=== PATIENT | male | born 1945 | race Two or more races ===

== ENCOUNTER 2024-07-22 12:38 | Inpatient (IN) | payer OTHER, MEDICAID ==
[2024-07-22] VITALS (25 sets, daily range): BP systolic 74–111; BP diastolic 48–76; TEMP 99.8–100.1; O2SAT 98–100
[~2024-07-22] VITALS: Ht 165.1 cm; Wt 124.1 kg
[2024-07-22] MEDS ORDERED: DICY10CA13 PO (13:07)
[2024-07-22] MEDS ORDERED: LOSA25TA27 PO (13:07)
[2024-07-22] MEDS ORDERED: TEMA15CA PO (13:07)
[2024-07-22] MEDS ORDERED: TAMS-3 PO (13:07)
[2024-07-22] MEDS ORDERED: VERA240C2 PO (13:07)
[2024-07-22] MEDS ORDERED: METF500S7 PO (13:07)
[2024-07-22] MEDS ORDERED: FINA1TAB11 PO (13:07)
[2024-07-22] MEDS ORDERED: CEFEPIME HCL 1 G VIAL ONE ×2 (13:11→21:57)
[2024-07-22] MEDS: IV LACTATED RINGERS SOLUTION 1,000 ML BAG IV ONE (13:12)
[2024-07-22] MEDS: CEFEPIME HCL 1 G in IV DEXTROSE 5% 50 ML IV ONE (13:15)
[2024-07-22 13:20] LABS: BASOPHILS % (AUTO) 0.1 % (0.0-2.0); HEMATOCRIT 47.8 % (36.7-47.1); HEMOGLOBIN 15.9 g/dL (12.5-16.3); LYMPHOCYTES # (AUTO) 0.3 K/uL (0.8-4.8); LYMPHOCYTES % (AUTO) 3.4 % (20.5-51.5); MEAN CORPUSCULAR HEMOGLOBIN 31.7 uug (23.8-33.4); MEAN CORPUSCULAR HGB CONC 33 g/dL (32.5-36.3); MEAN CORPUSCULAR VOLUME 95.3 fL (73.0-96.2); MONOCYTES # (AUTO) 0.1 K/uL (0.1-1.30); MONOCYTES % (AUTO) 1.4 % (0.0-11.0); NEUTROPHILS # (AUTO) 8.6 K/uL (1.8-8.9); NEUTROPHILS % (AUTO) 95.1 % (38.5-71.5); PLATELET COUNT (AUTO) 87 K/uL (152-348); RED BLOOD CELL COUNT(AUTO) 5.01 MIL/uL (4.06-5.63); RED CELL DISTRIBUTION WIDTH 14.9 % (12.1-16.2); WHITE BLOOD COUNT (AUTO) 9.1 K/uL (3.6-10.2)
[2024-07-22] MEDS ORDERED: VANCOMYCIN IV 200 ML ONE (13:21)
[2024-07-22 13:25] LABS: ABG BASE EXCESS -12.4 mmol/L (-2.0-3.0); ABG HCO3 11.5 mmol/L (21.0-28.0); ABG PCO2 23.6 mmHg (35.0-48.0); ABG PH 7.307 (7.350-7.450); ABG PO2 95.1 mmHg (83.0-108.0); ABG SITE RIGHT RADIAL; ABG TOTAL HEMOGLOBIN 16.6 G/dL (13.5-17.5); AaDO2 96.8 mmHg; MetHb 0.4 % (0.0-1.5); O2Hb 96.2 % (94.0-98.0)
[2024-07-22] MEDS: VANCOMYCIN IV 1,000 MG in IV DEXTROSE 5% 250 ML IV ONE (13:25)
[2024-07-22 13:31] LABS: DIFFERENTIAL COMMENT 1
[2024-07-22 13:44] LABS: ETHANOL < 3 MG/DL (0-10)
[2024-07-22 13:45] LABS: AMMONIA < 10 umol/L (11-32)
[2024-07-22 13:50] LABS: ACETAMINOPHEN < 10.0 ug/mL (10-30)
[2024-07-22 13:56] LABS: LACTIC ACID 13.2 mmol/L (0.4-2.0)
[2024-07-22 13:59] LABS: CALCIUM 8.9 mg/dL (8.5-10.1); CARBON DIOXIDE 15 mmol/L (21-32); CHLORIDE 103 mmol/L (98-107); GLUCOSE 76 mg/dL (74-106); POTASSIUM 3.1 mmol/L (3.5-5.1); SODIUM SERUM 145 mmol/L (136-145); UREA NITROGEN, BLOOD 48 mg/dL (7-18)
[2024-07-22 14:08] LABS: BAND % (MANUAL) 13 % (0-10); LYMPHOCYTES % (MANUAL) 5 % (20-40); METAMYELOCYTES % 4 % (0-1); MONOCYTES % (MANUAL) 2 % (2-10); MYELOCYTES % 6 % (0-0); NEUTROPHILS % (MANUAL) 70 % (42-75); PLATELET ESTIMATE DECREASED
[2024-07-22 14:12] LABS: ALANINE AMINOTRANSFERASE 29 U/L (16-63); ALBUMIN 3.3 g/dL (3.4-5.0); ALKALINE PHOSPHATASE 221 U/L (50-136); ASPARTATE AMINOTRANSFERASE 60 U/L (15-37); BILIRUBIN,DIRECT 0.6 mg/dL (0.0-0.2); BILIRUBIN,TOTAL 2.1 mg/dL (0.2-1.0); NT-PRO BNP 11380 pg/mL (0-125); TOTAL PROTEIN, SERUM 7.6 g/dL (6.4-8.2)
[2024-07-22 15:52] LABS: *BILIRUBIN,URIN NEGATIVE (NEGATIVE); *BLOOD, URINE 3+ (NEGATIVE); *CLARITY,URINE SLIGHTLY CLOUDY (CLEAR); *COLOR,URINE DARK YELLOW (YELLOW); *KETONES,URINE TRACE (NEGATIVE); *PROTEIN,URINE 2+ (NEGATIVE); *UROBILINOGEN,URINE 0.2 E.U./dl (NORMAL); LEUKOCYTE ESTERASE ,URINE NEGATIVE (NEGATIVE); NITRITE, URINE POSITIVE (NEGATIVE); PH,URINE 5.5 (5.0-8.0); UGLUCOSE NEGATIVE (NEGATIVE)
[2024-07-22 16:09] LABS: BACTERIA,URINE MODERATE /HPF (NONE SEEN); RBC,URINE 20-50 /HPF (0-3)
[2024-07-22 16:10] LABS: SQUAMOUS EPITHELIAL CELL,UR FEW /HPF (NONE SEEN)
[2024-07-22 16:11] LABS: URINE AMORPHOUS URATE MODERATE /HPF
[2024-07-22 16:23] LABS: ABG BASE EXCESS -10.6 mmol/L (-2.0-3.0); ABG HCO3 18.2 mmol/L (21.0-28.0); ABG PCO2 51.4 mmHg (35.0-48.0); ABG PH 7.168 (7.350-7.450); ABG PO2 88.4 mmHg (83.0-108.0); AaDO2 94.2 mmHg; COHb 0.6 % (0.5-1.5); MetHb 0.4 % (0.0-1.5); O2Hb 95.3 % (94.0-98.0)
[2024-07-22] MEDS ORDERED: ETOMIDATE 20 MG/10 ML VIAL ONE (16:34)
[2024-07-22] MEDS: ETOMIDATE 20 MG/10 ML VIAL IV ONE (16:35)
[2024-07-22] MEDS: ROCURONIUM BROMIDE 50 MG/5 ML VIAL IV ONE (16:36)
[2024-07-22] MEDS: NOREPINEPHRINE BITARTRATE 8 MG in IV NORMAL SALINE 250 ML IV ONE (16:40)
[2024-07-22] MEDS ORDERED: NOREPINEPHRINE 8MG/NS 250ML 250 ML IV ONE ×2 (16:41→20:44)
[2024-07-22] MEDS ORDERED: PROPOFOL 100 ML ONE (16:41)
[2024-07-22] MEDS: PROPOFOL 100 ML IV ONE (16:45)
[2024-07-22] MEDS: IV NORMAL SALINE 1000 ML BAG IV ONE (17:08)
[2024-07-22] MEDS ORDERED: ACETAMINOPHEN 650 MG SUPP.RECT RC ONE ×2 (17:15)
[2024-07-22 17:48] LABS: ABG BASE EXCESS -9.3 mmol/L (-2.0-3.0); ABG HCO3 16.4 mmol/L (21.0-28.0); ABG PCO2 35.4 mmHg (35.0-48.0); ABG PH 7.284 (7.350-7.450); ABG PO2 164.2 mmHg (83.0-108.0); ABG SITE RIGHT RADIAL; ABG TOTAL HEMOGLOBIN 15.2 G/dL (13.5-17.5); AaDO2 98.9 mmHg; COHb 0.3 % (0.5-1.5); MetHb 0.5 % (0.0-1.5); O2Hb 98.4 % (94.0-98.0); VT, ABG 577 mL
[2024-07-22] MEDS ORDERED: CEFEPIME HCL 1 G in IV DEXTROSE 5% 50 ML IV SCH (18:15)
[2024-07-22] MEDS ORDERED: ONDANSETRON 4 MG/2 ML VIAL IV PRN (18:15)
[2024-07-22] MEDS ORDERED: MAGNESIUM HYDROXIDE 30 ML LIQUID UDC PO PRN (18:15)
[2024-07-22] MEDS ORDERED: DEXTROSE 50% 50 ML DISP.SYRIN IV PRN (18:15)
[2024-07-22] MEDS ORDERED: NOREPINEPHRINE 8MG/NS 250ML 250 ML IV PRN (21:00)
[2024-07-22] MEDS: IV D5 1/2 NS 1000 ML 1,000 ML IV SCH (21:06)
[2024-07-22] MEDS: BLOOD SUGAR DIAGNOSTIC 1 EACH STRIP VI SCH (21:19)
[2024-07-22] MEDS: NOREPINEPHRINE 8MG/NS 250ML 250 ML IV PRN (21:42)
[2024-07-22] MEDS ORDERED: PROPOFOL 100 ML IV PRN (21:45)
[2024-07-22] MEDS ORDERED: INSULIN REGULAR, HUMAN 1000 UNIT/10 ML VIAL ONE (21:56)
[2024-07-22] MEDS: PROPOFOL 100 ML IV PRN (21:59)
[2024-07-23] VITALS (64 sets, daily range): BP systolic 68–123; BP diastolic 36–83; TEMP 99.8–103.1; O2SAT 92–100
[2024-07-23] MEDS ORDERED: NOREPINEPHRINE 8MG/NS 250ML 250 ML IV ONE (02:20)
[2024-07-23] MEDS: NOREPINEPHRINE BITARTRATE 4 MG/4 ML VIAL IV ONE (03:25)
[2024-07-23] MEDS: INSULIN REGULAR, HUMAN 1000 UNIT/10 ML VIAL SQ PRN (05:48)
[2024-07-23 07:50] LABS: BASOPHILS # (AUTO) 0.1 K/UL (0.0-0.2); BASOPHILS % (AUTO) 0.2 % (0.0-2.0); DIFFERENTIAL COMMENT 0; EOSINOPHILS # (AUTO) 3.3 K/uL (0.0-0.7); EOSINOPHILS % (AUTO) 14.5 % (0.0-7.0); HEMATOCRIT 43.2 % (36.7-47.1); LYMPHOCYTES # (AUTO) 0.8 K/uL (0.8-4.8); LYMPHOCYTES % (AUTO) 3.5 % (20.5-51.5); MEAN CORPUSCULAR HEMOGLOBIN 32.8 uug (23.8-33.4); MEAN CORPUSCULAR HGB CONC 35 g/dL (32.5-36.3); MEAN CORPUSCULAR VOLUME 94.8 fL (73.0-96.2); MONOCYTES # (AUTO) 0.4 K/uL (0.1-1.30); MONOCYTES % (AUTO) 1.6 % (0.0-11.0); NEUTROPHILS # (AUTO) 18.3 K/uL (1.8-8.9); NEUTROPHILS % (AUTO) 80.2 % (38.5-71.5); RED BLOOD CELL COUNT(AUTO) 4.56 MIL/uL (4.06-5.63); RED CELL DISTRIBUTION WIDTH 15.3 % (12.1-16.2); WHITE BLOOD COUNT (AUTO) 22.9 K/uL (3.6-10.2)
[2024-07-23 07:53] LABS: PLATELET COUNT (AUTO) 48 K/uL (152-348)
[2024-07-23] MEDS ORDERED: NOREPINEPHRINE BITARTRATE 32 MG in IV NORMAL SALINE 218 ML IV PRN (08:00)
[2024-07-23 08:10] LABS: ALANINE AMINOTRANSFERASE 45 U/L (16-63); ALBUMIN 2.6 g/dL (3.4-5.0); ALKALINE PHOSPHATASE 98 U/L (50-136); ASPARTATE AMINOTRANSFERASE 95 U/L (15-37); BILIRUBIN,TOTAL 2.6 mg/dL (0.2-1.0); CALCIUM 7.7 mg/dL (8.5-10.1); CARBON DIOXIDE 16 mmol/L (21-32); CHLORIDE 104 mmol/L (98-107); CREATINE KINASE, TOTAL 3765 U/L (39-308); CREATININE 4.6 mg/dL (0.6-1.3); GLUCOSE 174 mg/dL (74-106); MAGNESIUM 1.9 mg/dL (1.8-2.4); PHOSPHOROUS 6.7 mg/dL (2.5-4.9); POTASSIUM 3.8 mmol/L (3.5-5.1); SODIUM SERUM 142 mmol/L (136-145); TOTAL PROTEIN, SERUM 6.6 g/dL (6.4-8.2); UREA NITROGEN, BLOOD 66 mg/dL (7-18)
[2024-07-23] MEDS: ACETAMINOPHEN 650 MG SUPP.RECT RC PRN (08:27)
[2024-07-23 08:32] LABS: ABG BASE EXCESS -13.3 mmol/L (-2.0-3.0); ABG HCO3 11.9 mmol/L (21.0-28.0); ABG PCO2 27.2 mmHg (35.0-48.0); ABG PO2 64.6 mmHg (83.0-108.0); ABG SITE RIGHT RADIAL; ABG TOTAL HEMOGLOBIN 15.5 G/dL (13.5-17.5); COHb 0.6 % (0.5-1.5); MetHb 0.5 % (0.0-1.5); O2Hb 91.6 % (94.0-98.0); VT, ABG 550 mL
[2024-07-23] MEDS: PANTOPRAZOLE SODIUM 40 MG VIAL IV SCH (09:30)
[2024-07-23] MEDS: VANCOMYCIN HCL 750 MG in IV DEXTROSE 5% 250 ML IV ONE (09:30)
[2024-07-23] MEDS: NOREPINEPHRINE BITARTRATE 32 MG in IV NORMAL SALINE 218 ML IV PRN (09:56)
[2024-07-23] MEDS ORDERED: METF-442 PO (10:47)
[2024-07-23] MEDS ORDERED: FINA5TAB11 PO (10:47)
[2024-07-23] MEDS ORDERED: VERA240T32 PO (10:47)
[2024-07-23] MEDS: AMIODARONE HCL IV 150 MG in IV DEXTROSE 5% 100 ML IV ONE (10:48)
[2024-07-23 11:05] LABS: ANISOCYTOSIS 1+; BAND % (MANUAL) 12 % (0-10); LYMPHOCYTES % (MANUAL) 2 % (20-40); METAMYELOCYTES % 12 % (0-1); MONOCYTES % (MANUAL) 4 % (2-10); MYELOCYTES % 6 % (0-0); NEUTROPHILS % (MANUAL) 64 % (42-75); PLATELET ESTIMATE DECREASED
[2024-07-23] MEDS: AMIODARONE HCL IV 450 MG in IV DEXTROSE 5% 250 ML IV PRN (11:16)
[2024-07-23] MEDS ORDERED: PHENYLEPHRINE IV 100 MG in IV NORMAL SALINE 240 ML IV PRN (11:30)
[2024-07-23] MEDS ORDERED: FENTANYL CITRATE/PF 1,000 MCG in IV NORMAL SALINE 80 ML IV PRN (11:30)
[2024-07-23] MEDS ORDERED: MIDAZOLAM HCL 50 MG in IV NORMAL SALINE 40 ML IV PRN (11:30)
[2024-07-23] MEDS: PHENYLEPHRINE IV 100 MG in IV NORMAL SALINE 240 ML IV PRN (12:26)
[2024-07-23] MEDS: SODIUM BICARBONATE 8.4% 50 MEQ/50 ML DISP.SYRIN IV ONE (12:48)
[2024-07-23] MEDS: SODIUM BICARBONATE 8.4% 150 MEQ in IV D5W 1000ML 1,000 ML IV SCH (12:54)
[2024-07-23] MEDS ORDERED: CEFEPIME HCL 2 GM in IV DEXTROSE 5% 100 ML IV ONE (13:00)
[2024-07-23] MEDS: FENTANYL CITRATE/PF 1,000 MCG in IV NORMAL SALINE 80 ML IV PRN (13:14)
[2024-07-23 13:57] LABS: ABG BASE EXCESS -13.3 mmol/L (-2.0-3.0); ABG HCO3 11.6 mmol/L (21.0-28.0); ABG PCO2 25.7 mmHg (35.0-48.0); ABG PH 7.272 (7.350-7.450); ABG PO2 75.8 mmHg (83.0-108.0); ABG SITE RIGHT RADIAL; ABG TOTAL HEMOGLOBIN 15.5 G/dL (13.5-17.5); AaDO2 93.7 mmHg; COHb 0.3 % (0.5-1.5); MetHb 0.4 % (0.0-1.5); O2Hb 95.2 % (94.0-98.0); VT, ABG 500 mL
[2024-07-23] MEDS: CEFEPIME HCL 2 GM in IV DEXTROSE 5% 100 ML IV SCH (14:08)
[2024-07-23] MEDS: MIDAZOLAM HCL 50 MG in IV NORMAL SALINE 40 ML IV PRN (17:42)
[2024-07-23 17:44] LABS: DIFFERENTIAL COMMENT 0; EOSINOPHILS # (AUTO) 1.6 K/uL (0.0-0.7); EOSINOPHILS % (AUTO) 5.6 % (0.0-7.0); HEMATOCRIT 42.2 % (36.7-47.1); HEMOGLOBIN 14.7 g/dL (12.5-16.3); LYMPHOCYTES # (AUTO) 0.4 K/uL (0.8-4.8); LYMPHOCYTES % (AUTO) 1.5 % (20.5-51.5); MEAN CORPUSCULAR HEMOGLOBIN 32.2 uug (23.8-33.4); MEAN CORPUSCULAR HGB CONC 35 g/dL (32.5-36.3); MEAN CORPUSCULAR VOLUME 92.4 fL (73.0-96.2); MONOCYTES # (AUTO) 0.9 K/uL (0.1-1.30); MONOCYTES % (AUTO) 3.1 % (0.0-11.0); NEUTROPHILS # (AUTO) 25.1 K/uL (1.8-8.9); NEUTROPHILS % (AUTO) 89.8 % (38.5-71.5); RED BLOOD CELL COUNT(AUTO) 4.57 MIL/uL (4.06-5.63); RED CELL DISTRIBUTION WIDTH 14.9 % (12.1-16.2)
[2024-07-23 17:49] LABS: PLATELET COUNT (AUTO) 36 K/uL (152-348)
[2024-07-23] MEDS: MINERAL OIL/PETROLAT OPHT OINT 3.5 GM TUBE EACHEYE SCH (17:54)
[2024-07-23 17:58] LABS: CARBON DIOXIDE 15 mmol/L (21-32); CHLORIDE 102 mmol/L (98-107); CREATININE 5.3 mg/dL (0.6-1.3); GLUCOSE 189 mg/dL (74-106); POTASSIUM 3.9 mmol/L (3.5-5.1); SODIUM SERUM 140 mmol/L (136-145); UREA NITROGEN, BLOOD 69 mg/dL (7-18)
[2024-07-23 18:03] LABS: ALBUMIN 2.2 g/dL (3.4-5.0); ALKALINE PHOSPHATASE 159 U/L (50-136); ASPARTATE AMINOTRANSFERASE 116 U/L (15-37); BILIRUBIN,TOTAL 1.3 mg/dL (0.2-1.0); LIPASE < 10 U/L (16-77); MAGNESIUM 1.9 mg/dL (1.8-2.4); PHOSPHOROUS 5.8 mg/dL (2.5-4.9); TOTAL PROTEIN, SERUM 6.3 g/dL (6.4-8.2)
[2024-07-23 18:11] LABS: LACTIC ACID 7.5 mmol/L (0.4-2.0)
[2024-07-23 18:40] LABS: ALANINE AMINOTRANSFERASE 50 U/L (16-63)
[2024-07-23] MEDS: VASOPRESSIN 40 UNIT in IV NORMAL SALINE 40 ML IV PRN ×2 (18:51→19:07)
[2024-07-23 18:59] LABS: THYROID STIMULATING HORMONE 0.859 mIU/mL (0.358-3.740)
[2024-07-23 19:11] LABS: BAND % (MANUAL) 24 % (0-10); LYMPHOCYTES % (MANUAL) 1 % (20-40); METAMYELOCYTES % 1 % (0-1); MONOCYTES % (MANUAL) 3 % (2-10); NEUTROPHILS % (MANUAL) 70 % (42-75); PLATELET ESTIMATE MARKED DECREASED; PROMYELOCYTES % 1 %
[2024-07-23 19:12] LABS: ANISOCYTOSIS 2+; TEAR DROP CELLS 1+
[2024-07-24] VITALS (72 sets, daily range): BP systolic 50–146; BP diastolic 31–120; TEMP 98–102.7; O2SAT 89–100
[2024-07-24] MEDS ORDERED: MEROPENEM 500MG/NS 50ML PB ***ER PYXIS ONLY IV ONE (00:57)
[2024-07-24] MEDS: MEROPENEM 500 MG in IV NORMAL SALINE 50 ML IV ONE (01:16)
[2024-07-24] MEDS: POTASSIUM CHLORIDE 20 MEQ in IV D5/ 0.9% NACL 1,000 ML IV PRN (02:40)
[2024-07-24 05:10] LABS: LYMPHOCYTES # (AUTO) 0.5 K/uL (0.8-4.8); MEAN CORPUSCULAR VOLUME 92.3 fL (73.0-96.2)
[2024-07-24 05:12] LABS: BASOPHILS % (AUTO) 0.1 % (0.0-2.0); EOSINOPHILS % (AUTO) 6.2 % (0.0-7.0); HEMATOCRIT 41.9 % (36.7-47.1); HEMOGLOBIN 14.4 g/dL (12.5-16.3); LYMPHOCYTES % (AUTO) 1.5 % (20.5-51.5); MEAN CORPUSCULAR HEMOGLOBIN 31.8 uug (23.8-33.4); MEAN CORPUSCULAR HGB CONC 35 g/dL (32.5-36.3); MONOCYTES # (AUTO) 0.5 K/uL (0.1-1.30); MONOCYTES % (AUTO) 1.6 % (0.0-11.0); NEUTROPHILS # (AUTO) 28.8 K/uL (1.8-8.9); NEUTROPHILS % (AUTO) 90.6 % (38.5-71.5); RED BLOOD CELL COUNT(AUTO) 4.54 MIL/uL (4.06-5.63); RED CELL DISTRIBUTION WIDTH 14.9 % (12.1-16.2)
[2024-07-24 05:24] LABS: CALCIUM 6.9 mg/dL (8.5-10.1); CARBON DIOXIDE 15 mmol/L (21-32); CHLORIDE 101 mmol/L (98-107); CREATININE 5.6 mg/dL (0.6-1.3); GLUCOSE 165 mg/dL (74-106); MAGNESIUM 1.8 mg/dL (1.8-2.4); PHOSPHOROUS 6.8 mg/dL (2.5-4.9); POTASSIUM 4.2 mmol/L (3.5-5.1); SODIUM SERUM 138 mmol/L (136-145); UREA NITROGEN, BLOOD 77 mg/dL (7-18)
[2024-07-24 05:28] LABS: DIFFERENTIAL COMMENT 1; PLATELET COUNT (AUTO) 43 K/uL (152-348); WHITE BLOOD COUNT (AUTO) 31.8 K/uL (3.6-10.2)
[2024-07-24 05:30] LABS: CHOLESTEROL 76 mg/dL (<200); HDL CHOLESTEROL 13 mg/dL (40-60); TRIGLYCERIDES 449 MG/DL (30-150)
[2024-07-24 06:03] LABS: BAND % (MANUAL) 8 % (0-10); BLASTS, MANUAL % 6 % (0-0); EOSINOPHILS % (MANUAL) 2 % (0-8); LYMPHOCYTES % (MANUAL) 3 % (20-40); MONOCYTES % (MANUAL) 4 % (2-10); MYELOCYTES % 3 % (0-0); NEUTROPHILS % (MANUAL) 74 % (42-75)
[2024-07-24 06:54] LABS: CREATINE KINASE, TOTAL < 7 U/L (39-308); VANCOMYCIN,RANDOM < 0.8 ug/mL (20.0-30.0)
[2024-07-24] MEDS: VANCOMYCIN IV 1,000 MG in IV DEXTROSE 5% 250 ML IV ONE (08:49)
[2024-07-24] MEDS: AMIODARONE HCL 200 MG TABLET PO SCH (09:33)
[2024-07-24] MEDS: IV D5/ 0.9% NACL 1,000 ML IV PRN (12:13)
[2024-07-24] MEDS: LEVALBUTEROL HCL NEB 0.63 MG/3 ML NEBU NEB SCH (13:11)
[2024-07-24] MEDS: IPRATROPIUM BROMIDE 0.5 MG/2.5 ML NEBU NEB SCH (13:11)
[2024-07-24] MEDS ORDERED: LOSA1TAB39 PO (14:13)
[2024-07-24] MEDS ORDERED: MONT10TA33 PO (14:21)
[2024-07-24] MEDS ORDERED: SIMV10TA98 PO (14:22)
[2024-07-24] MEDS ORDERED: SEMA0.25 SQ (14:23)
[2024-07-24] MEDS ORDERED: CHOL10005 PO (14:24)
[2024-07-24] MEDS ORDERED: CLON0.1T PO (14:24)
[2024-07-24] MEDS ORDERED: FLUT16SP16 NS (14:26)
[2024-07-24] MEDS ORDERED: FURO20TA4 PO (14:28)
[2024-07-24] MEDS ORDERED: GLIM1TAB18 PO (14:29)
[2024-07-24] MEDS ORDERED: LORA10CA PO (14:30)
[2024-07-24] MEDS: MEROPENEM 500 MG in IV NORMAL SALINE 50 ML IV SCH (15:18)
[2024-07-24] MEDS: AMIODARONE HCL IV 150 MG in IV DEXTROSE 5% 100 ML IV ONE (16:03)
[2024-07-24] MEDS: AMIODARONE HCL IV 450 MG in IV DEXTROSE 5% 250 ML IV PRN (16:22)
[2024-07-25] VITALS (93 sets, daily range): BP systolic 52–141; BP diastolic 21–118; TEMP 100.2–102.5; O2SAT 89–99
[2024-07-25] MEDS ORDERED: MEROPENEM 500 MG in IV NORMAL SALINE 50 ML IV SCH (01:00)
[2024-07-25 05:16] LABS: BASOPHILS % (AUTO) 0.2 % (0.0-2.0); EOSINOPHILS # (AUTO) 1.3 K/uL (0.0-0.7); EOSINOPHILS % (AUTO) 4.3 % (0.0-7.0); HEMATOCRIT 43.2 % (36.7-47.1); HEMOGLOBIN 14.7 g/dL (12.5-16.3); LYMPHOCYTES # (AUTO) 0.8 K/uL (0.8-4.8); LYMPHOCYTES % (AUTO) 2.8 % (20.5-51.5); MEAN CORPUSCULAR HEMOGLOBIN 31.6 uug (23.8-33.4); MEAN CORPUSCULAR HGB CONC 34 g/dL (32.5-36.3); MEAN CORPUSCULAR VOLUME 92.6 fL (73.0-96.2); MONOCYTES # (AUTO) 1.3 K/uL (0.1-1.30); MONOCYTES % (AUTO) 4.4 % (0.0-11.0); NEUTROPHILS # (AUTO) 25.7 K/uL (1.8-8.9); NEUTROPHILS % (AUTO) 88.3 % (38.5-71.5); RED BLOOD CELL COUNT(AUTO) 4.66 MIL/uL (4.06-5.63); RED CELL DISTRIBUTION WIDTH 15.3 % (12.1-16.2); WHITE BLOOD COUNT (AUTO) 29.1 K/uL (3.6-10.2)
[2024-07-25 05:41] LABS: ALANINE AMINOTRANSFERASE 450 U/L (16-63); ALBUMIN 1.9 g/dL (3.4-5.0); ALKALINE PHOSPHATASE 233 U/L (50-136); ASPARTATE AMINOTRANSFERASE 634 U/L (15-37); BILIRUBIN,TOTAL 1.2 mg/dL (0.2-1.0); CALCIUM 7.1 mg/dL (8.5-10.1); CARBON DIOXIDE 12 mmol/L (21-32); CHLORIDE 104 mmol/L (98-107); CREATININE 6.8 mg/dL (0.6-1.3); GLUCOSE 244 mg/dL (74-106); MAGNESIUM 1.9 mg/dL (1.8-2.4); PHOSPHOROUS 6.6 mg/dL (2.5-4.9); POTASSIUM 4.6 mmol/L (3.5-5.1); SODIUM SERUM 137 mmol/L (136-145); TOTAL PROTEIN, SERUM 5.9 g/dL (6.4-8.2)
[2024-07-25 05:52] LABS: DIFFERENTIAL COMMENT 1; PLATELET COUNT (AUTO) 33 K/uL (152-348); UREA NITROGEN, BLOOD 97 mg/dL (7-18)
[2024-07-25 06:08] LABS: ABG BASE EXCESS -11.4 mmol/L (-2.0-3.0); ABG HCO3 12.4 mmol/L (21.0-28.0); ABG PCO2 24.1 mmHg (35.0-48.0); ABG PH 7.328 (7.350-7.450); ABG PO2 102.7 mmHg (83.0-108.0); ABG SITE ALINE; ABG TOTAL HEMOGLOBIN 15.4 G/dL (13.5-17.5); AaDO2 97.5 mmHg; COHb 0.3 % (0.5-1.5); MetHb 0.3 % (0.0-1.5); O2Hb 97.5 % (94.0-98.0); VT, ABG 500 mL
[2024-07-25 06:34] LABS: LYMPHOCYTES % (MANUAL) 4 % (20-40); METAMYELOCYTES % 1 % (0-1); MONOCYTES % (MANUAL) 5 % (2-10); NEUTROPHILS % (MANUAL) 90 % (42-75); PLATELET ESTIMATE DECREASED
[2024-07-25 06:35] LABS: ANISOCYTOSIS 1+
[2024-07-25] MEDS ORDERED: PHENYLEPHRINE 10 MG/1 ML VIAL ONE (07:00)
[2024-07-25] MEDS ORDERED: ROCURONIUM BROMIDE 50 MG/5 ML VIAL ONE (07:37)
[2024-07-25 09:56] LABS: ABG BASE EXCESS -15.9 mmol/L (-2.0-3.0); ABG HCO3 10.5 mmol/L (21.0-28.0); ABG PCO2 27.9 mmHg (35.0-48.0); ABG PH 7.195 (7.350-7.450); ABG PO2 78.9 mmHg (83.0-108.0); ABG SITE ALINE; ABG TOTAL HEMOGLOBIN 16.4 G/dL (13.5-17.5); AaDO2 93.1 mmHg; COHb 0.2 % (0.5-1.5); MetHb 0.4 % (0.0-1.5); O2Hb 93.5 % (94.0-98.0); VT, ABG 515 mL
[2024-07-25] MEDS ORDERED: ALTEPLASE 2 MG VIAL XX ONE (11:30)
[2024-07-25] MEDS: ALTEPLASE 2 MG VIAL XX ONE (11:56)
[2024-07-25] MEDS: MEROPENEM 500 MG in IV NORMAL SALINE 50 ML IV SCH (21:38)
[2024-07-26] VITALS (70 sets, daily range): BP systolic 107–137; BP diastolic 56–74; TEMP 98.2–100.2; O2SAT 94–98
[2024-07-26 05:29] LABS: BASOPHILS # (AUTO) 0.1 K/UL (0.0-0.2); HEMOGLOBIN 13.9 g/dL (12.5-16.3)
[2024-07-26 05:31] LABS: BASOPHILS % (AUTO) 0.3 % (0.0-2.0); EOSINOPHILS # (AUTO) 0.2 K/uL (0.0-0.7); EOSINOPHILS % (AUTO) 0.8 % (0.0-7.0); HEMATOCRIT 40.4 % (36.7-47.1); LYMPHOCYTES # (AUTO) 0.7 K/uL (0.8-4.8); LYMPHOCYTES % (AUTO) 3.2 % (20.5-51.5); MEAN CORPUSCULAR HEMOGLOBIN 31.7 uug (23.8-33.4); MEAN CORPUSCULAR HGB CONC 35 g/dL (32.5-36.3); MEAN CORPUSCULAR VOLUME 91.9 fL (73.0-96.2); MONOCYTES # (AUTO) 1.2 K/uL (0.1-1.30); MONOCYTES % (AUTO) 5.5 % (0.0-11.0); NEUTROPHILS # (AUTO) 20.6 K/uL (1.8-8.9); NEUTROPHILS % (AUTO) 90.2 % (38.5-71.5); RED BLOOD CELL COUNT(AUTO) 4.39 MIL/uL (4.06-5.63); RED CELL DISTRIBUTION WIDTH 15.3 % (12.1-16.2); WHITE BLOOD COUNT (AUTO) 22.8 K/uL (3.6-10.2)
[2024-07-26 05:44] LABS: DIFFERENTIAL COMMENT 1; PLATELET COUNT (AUTO) 39 K/uL (152-348)
[2024-07-26 05:55] LABS: ALANINE AMINOTRANSFERASE 997 U/L (16-63); ALBUMIN 1.6 g/dL (3.4-5.0); ALKALINE PHOSPHATASE 215 U/L (50-136); ASPARTATE AMINOTRANSFERASE 1153 U/L (15-37); BILIRUBIN,DIRECT 0.9 mg/dL (0.0-0.2); BILIRUBIN,TOTAL 1.7 mg/dL (0.2-1.0); CALCIUM 6.5 mg/dL (8.5-10.1); CARBON DIOXIDE 17 mmol/L (21-32); CHLORIDE 108 mmol/L (98-107); CREATININE 6.7 mg/dL (0.6-1.3); GLUCOSE 162 mg/dL (74-106); MAGNESIUM 1.9 mg/dL (1.8-2.4); SODIUM SERUM 142 mmol/L (136-145)
[2024-07-26 06:20] LABS: UREA NITROGEN, BLOOD 110 mg/dL (7-18)
[2024-07-26 06:23] LABS: ABG BASE EXCESS -10.5 mmol/L (-2.0-3.0); ABG PCO2 24.2 mmHg (35.0-48.0); ABG PH 7.348 (7.350-7.450); ABG PO2 91.9 mmHg (83.0-108.0); ABG SITE LEFT RADIAL; AaDO2 96.8 mmHg; COHb 0.3 % (0.5-1.5); MetHb 0.5 % (0.0-1.5); O2Hb 95.8 % (94.0-98.0); VT, ABG 500 mL
[2024-07-26 06:42] LABS: BAND % (MANUAL) 6 % (0-10); NEUTROPHILS % (MANUAL) 88 % (42-75)
[2024-07-26 06:43] LABS: ANISOCYTOSIS 1+; LYMPHOCYTES % (MANUAL) 3 % (20-40); MONOCYTES % (MANUAL) 3 % (2-10); PLATELET ESTIMATE MARKED DECREASED
[2024-07-26 13:19] LABS: *RHEUMATOID FACTOR SCREEN NEGATIVE (NEGATIVE)
[2024-07-26 14:12] LABS: BASOPHILS # (AUTO) 0.1 K/UL (0.0-0.2); BASOPHILS % (AUTO) 0.1 % (0.0-2.0); EOSINOPHILS # (AUTO) 1.2 K/uL (0.0-0.7); EOSINOPHILS % (AUTO) 3.3 % (0.0-7.0); HEMATOCRIT 37.4 % (36.7-47.1); HEMOGLOBIN 12.2 g/dL (12.5-16.3); LYMPHOCYTES # (AUTO) 1.3 K/uL (0.8-4.8); LYMPHOCYTES % (AUTO) 3.8 % (20.5-51.5); MEAN CORPUSCULAR HEMOGLOBIN 32.2 uug (23.8-33.4); MEAN CORPUSCULAR HGB CONC 33 g/dL (32.5-36.3); MEAN CORPUSCULAR VOLUME 98.7 fL (73.0-96.2); MONOCYTES # (AUTO) 0.5 K/uL (0.1-1.30); MONOCYTES % (AUTO) 1.5 % (0.0-11.0); NEUTROPHILS # (AUTO) 32.3 K/uL (1.8-8.9); NEUTROPHILS % (AUTO) 91.3 % (38.5-71.5); RED BLOOD CELL COUNT(AUTO) 3.79 MIL/uL (4.06-5.63); RED CELL DISTRIBUTION WIDTH 14.5 % (12.1-16.2)
[2024-07-26 14:21] LABS: WHITE BLOOD COUNT (AUTO) 35.4 K/uL (3.6-10.2)
[2024-07-26 14:22] LABS: DIFFERENTIAL COMMENT 1; PLATELET COUNT (AUTO) 30 K/uL (152-348)
[2024-07-26 14:31] LABS: C-REACTIVE PROTEIN 21.11 mg/dL (0.00-0.30)
[2024-07-26 14:36] LABS: BASOPHILS # (AUTO) 0.1 K/UL (0.0-0.2); BASOPHILS % (AUTO) 0.4 % (0.0-2.0); EOSINOPHILS # (AUTO) 0.1 K/uL (0.0-0.7); EOSINOPHILS % (AUTO) 0.3 % (0.0-7.0); HEMATOCRIT 37.7 % (36.7-47.1); HEMOGLOBIN 12.7 g/dL (12.5-16.3); LYMPHOCYTES # (AUTO) 0.5 K/uL (0.8-4.8); LYMPHOCYTES % (AUTO) 2.4 % (20.5-51.5); MEAN CORPUSCULAR HEMOGLOBIN 31.1 uug (23.8-33.4); MEAN CORPUSCULAR HGB CONC 34 g/dL (32.5-36.3); MEAN CORPUSCULAR VOLUME 92.2 fL (73.0-96.2); MONOCYTES # (AUTO) 1.5 K/uL (0.1-1.30); MONOCYTES % (AUTO) 6.8 % (0.0-11.0); NEUTROPHILS # (AUTO) 19.2 K/uL (1.8-8.9); NEUTROPHILS % (AUTO) 90.1 % (38.5-71.5); RED BLOOD CELL COUNT(AUTO) 4.09 MIL/uL (4.06-5.63); RED CELL DISTRIBUTION WIDTH 15.1 % (12.1-16.2); WHITE BLOOD COUNT (AUTO) 21.3 K/uL (3.6-10.2)
[2024-07-26 14:44] LABS: DIFFERENTIAL COMMENT 1
[2024-07-26 14:47] LABS: PLATELET COUNT (AUTO) 44 K/uL (152-348)
[2024-07-26] MEDS: ALTEPLASE 2 MG VIAL XX ONE (15:49)
[2024-07-26 17:38] LABS: BAND % (MANUAL) 5 % (0-10); EOSINOPHILS % (MANUAL) 1 % (0-8); LYMPHOCYTES % (MANUAL) 2 % (20-40); METAMYELOCYTES % 1 % (0-1); MONOCYTES % (MANUAL) 2 % (2-10); NEUTROPHILS % (MANUAL) 89 % (42-75); PLATELET ESTIMATE MARKED DECREASED
[2024-07-26 17:39] LABS: ANISOCYTOSIS 1+
[2024-07-26 17:40] LABS: TEAR DROP CELLS OCC
[2024-07-26 18:06] LABS: BAND % (MANUAL) 6 % (0-10); LYMPHOCYTES % (MANUAL) 3 % (20-40); MONOCYTES % (MANUAL) 5 % (2-10); NEUTROPHILS % (MANUAL) 86 % (42-75); PLATELET ESTIMATE MARKED DECREASED
[2024-07-26 18:07] LABS: ANISOCYTOSIS 1+
[2024-07-26] MEDS: VANCOMYCIN IV 1,000 MG in IV DEXTROSE 5% 250 ML IV ONE (18:08)
[2024-07-26] MEDS ORDERED: CEFTRIAXONE /D5W 50ML IVPB **ER PYXIS IV ONE (21:52)
[2024-07-26] MEDS: CEFTRIAXONE 1 G in IV DEXTROSE 5% 50 ML IV SCH (23:00)
[2024-07-27] VITALS (88 sets, daily range): BP systolic 87–135; BP diastolic 51–75; TEMP 98–99.7; O2SAT 94–99
[2024-07-27 05:55] LABS: BASOPHILS # (AUTO) 0.1 K/UL (0.0-0.2); BASOPHILS % (AUTO) 0.6 % (0.0-2.0); EOSINOPHILS # (AUTO) 0.1 K/uL (0.0-0.7); EOSINOPHILS % (AUTO) 0.3 % (0.0-7.0); HEMATOCRIT 40.5 % (36.7-47.1); HEMOGLOBIN 13.9 g/dL (12.5-16.3); LYMPHOCYTES # (AUTO) 0.9 K/uL (0.8-4.8); LYMPHOCYTES % (AUTO) 4.8 % (20.5-51.5); MEAN CORPUSCULAR HEMOGLOBIN 31.9 uug (23.8-33.4); MEAN CORPUSCULAR HGB CONC 34 g/dL (32.5-36.3); MEAN CORPUSCULAR VOLUME 93.3 fL (73.0-96.2); MONOCYTES # (AUTO) 1.4 K/uL (0.1-1.30); MONOCYTES % (AUTO) 7.2 % (0.0-11.0); NEUTROPHILS % (AUTO) 87.1 % (38.5-71.5); PLATELET COUNT (AUTO) 61 K/uL (152-348); RED BLOOD CELL COUNT(AUTO) 4.34 MIL/uL (4.06-5.63); RED CELL DISTRIBUTION WIDTH 15.3 % (12.1-16.2); WHITE BLOOD COUNT (AUTO) 19.5 K/uL (3.6-10.2)
[2024-07-27 06:39] LABS: DIFFERENTIAL COMMENT 1
[2024-07-27 06:45] LABS: ALANINE AMINOTRANSFERASE 659 U/L (16-63); ALBUMIN 1.5 g/dL (3.4-5.0); ALKALINE PHOSPHATASE 178 U/L (50-136); ASPARTATE AMINOTRANSFERASE 415 U/L (15-37); BILIRUBIN,TOTAL 2.1 mg/dL (0.2-1.0); CALCIUM 6.9 mg/dL (8.5-10.1); CARBON DIOXIDE 16 mmol/L (21-32); CHLORIDE 108 mmol/L (98-107); CREATININE 6.1 mg/dL (0.6-1.3); GLUCOSE 187 mg/dL (74-106); MAGNESIUM 1.9 mg/dL (1.8-2.4); PHOSPHOROUS 5.2 mg/dL (2.5-4.9); SODIUM SERUM 140 mmol/L (136-145); TOTAL PROTEIN, SERUM 4.9 g/dL (6.4-8.2)
[2024-07-27 06:53] LABS: UREA NITROGEN, BLOOD 114 mg/dL (7-18)
[2024-07-27 07:16] LABS: VANCOMYCIN,RANDOM 22.6 ug/mL (20.0-30.0)
[2024-07-27] MEDS: AMIODARONE HCL 200 MG TABLET PO SCH (10:34)
[2024-07-27 11:27] LABS: FIBRINOGEN ACTIVITY < 90 mg/dL (210-360)
[2024-07-27 12:32] LABS: LYMPHOCYTES % (MANUAL) 5 % (20-40); NEUTROPHILS % (MANUAL) 77 % (42-75)
[2024-07-27 12:33] LABS: ANISOCYTOSIS 1+; BAND % (MANUAL) 7 % (0-10); MONOCYTES % (MANUAL) 10 % (2-10); MYELOCYTES % 1 % (0-0); PLATELET ESTIMATE DECREASED
[2024-07-27 15:11] LABS: *ANTI-SCLERODERMA-70 AB <0.2 AI (0.0-0.9); *RNP ANTIBODIES <0.2 AI (0.0-0.9); *SJOGREN'S ANTI-SS-A <0.2 AI (0.0-0.9); *SJOGREN'S ANTI-SS-B <0.2 AI (0.0-0.9); *SMITH ANTIBODIES <0.2 AI (0.0-0.9); ANTI-DNA(DS) AB, QN 1 IU/mL (0-9); ANTI-NUCLEAR AB DIRECT Negative (Negative)
[2024-07-27] MEDS: ACETAMINOPHEN 650 MG/20.3 ML LIQUID UDC GT PRN (15:57)
[2024-07-27] MEDS: MAGNESIUM SULFATE/D5W 100 ML IV SCH (15:58)
[2024-07-27] MEDS ORDERED: PHYTONADIONE 10 MG/1 ML AMPUL SQ SCH (19:45)
[2024-07-27] MEDS: PHYTONADIONE 10 MG/1 ML AMPUL SQ ONE (20:07)
[2024-07-27] MEDS: CEFTRIAXONE 2 G in IV DEXTROSE 5% 100 ML IV SCH (20:55)
[2024-07-27 23:06] LABS: *IMMUNOGLOBULIN G, SERUM 1062 mg/dL (603-1613); FREE KAPPA LT CHAINS SERUM 111.9 mg/L (3.3-19.4); FREE LAMBDA LT CHAIN SERUM 62.9 mg/L (5.7-26.3); IMMUNOGLOBULIN A, SERUM 376 mg/dL (61-437); IMMUNOGLOBULIN M, SERUM 85 mg/dL (15-143); KAPPA/LAMBDA RATIO SERUM 1.78 (0.26-1.65)
[2024-07-28] VITALS (51 sets, daily range): BP systolic 90–141; BP diastolic 52–76; TEMP 97.4–98.7; O2SAT 95–100
[2024-07-28 00:15] LABS: HEPATITIS B SURFACE AB, QUAL Reactive (.); HEPATITIS B SURFACE AG Negative (Negative); HEPATITIS C VIRUS ANTIBODY Non Reactive (Non Reactive)
[2024-07-28 00:15] LABS: HEPATITIS B SURFACE AB, QUAL Non Reactive (.); HEPATITIS B SURFACE AG Negative (Negative)
[2024-07-28 01:09] LABS: CARCINOEMBRYONIC AG (CEA) 13.5 ng/mL (0.0-4.7); FOLATE (FOLIC ACID), SERUM 14.5 ng/mL (>3.0)
[2024-07-28 05:59] LABS: ABG BASE EXCESS -6.1 mmol/L (-2.0-3.0); ABG HCO3 16.8 mmol/L (21.0-28.0); ABG PCO2 26.6 mmHg (35.0-48.0); ABG PH 7.419 (7.350-7.450); ABG PO2 83.9 mmHg (83.0-108.0); ABG SITE LEFT RADIAL; AaDO2 96.6 mmHg; COHb 0.6 % (0.5-1.5); MetHb 0.3 % (0.0-1.5); O2Hb 95.7 % (94.0-98.0); VT, ABG 500 mL
[2024-07-28 06:59] LABS: BASOPHILS % (AUTO) 0.2 % (0.0-2.0); EOSINOPHILS # (AUTO) 0.1 K/uL (0.0-0.7); EOSINOPHILS % (AUTO) 0.3 % (0.0-7.0); HEMATOCRIT 35.2 % (36.7-47.1); HEMOGLOBIN 11.9 g/dL (12.5-16.3); LYMPHOCYTES # (AUTO) 0.9 K/uL (0.8-4.8); LYMPHOCYTES % (AUTO) 4.1 % (20.5-51.5); MEAN CORPUSCULAR HEMOGLOBIN 31.6 uug (23.8-33.4); MEAN CORPUSCULAR HGB CONC 34 g/dL (32.5-36.3); MEAN CORPUSCULAR VOLUME 93.2 fL (73.0-96.2); MONOCYTES # (AUTO) 0.6 K/uL (0.1-1.30); MONOCYTES % (AUTO) 3.1 % (0.0-11.0); NEUTROPHILS % (AUTO) 92.3 % (38.5-71.5); PLATELET COUNT (AUTO) 58 K/uL (152-348); RED BLOOD CELL COUNT(AUTO) 3.77 MIL/uL (4.06-5.63); RED CELL DISTRIBUTION WIDTH 14.9 % (12.1-16.2); WHITE BLOOD COUNT (AUTO) 20.6 K/uL (3.6-10.2)
[2024-07-28 07:37] LABS: DIFFERENTIAL COMMENT 1
[2024-07-28 07:48] LABS: ALANINE AMINOTRANSFERASE 463 U/L (16-63); ALBUMIN 1.5 g/dL (3.4-5.0); ALKALINE PHOSPHATASE 125 U/L (50-136); ASPARTATE AMINOTRANSFERASE 305 U/L (15-37); BILIRUBIN,DIRECT 0.8 mg/dL (0.0-0.2); BILIRUBIN,TOTAL 1.4 mg/dL (0.2-1.0); CALCIUM 7.5 mg/dL (8.5-10.1); CARBON DIOXIDE 19 mmol/L (21-32); CHLORIDE 109 mmol/L (98-107); CREATININE 5.7 mg/dL (0.6-1.3); GLUCOSE 185 mg/dL (74-106); MAGNESIUM 2.4 mg/dL (1.8-2.4); PHOSPHOROUS 5.1 mg/dL (2.5-4.9); POTASSIUM 3.5 mmol/L (3.5-5.1); SODIUM SERUM 143 mmol/L (136-145); TOTAL PROTEIN, SERUM 4.7 g/dL (6.4-8.2)
[2024-07-28 07:55] LABS: UREA NITROGEN, BLOOD 128 mg/dL (7-18)
[2024-07-28 08:17] LABS: C-REACTIVE PROTEIN 6.72 mg/dL (0.00-0.30)
[2024-07-28] MEDS: FUROSEMIDE 40 MG/4 ML VIAL IV SCH (09:36)
[2024-07-28 09:55] LABS: FIBRINOGEN ACTIVITY < 90 mg/dL (210-360)
[2024-07-28] MEDS: MEDIHONEY= THERAHONEY 1.5 OZ TUBE TOP SCH (12:32)
[2024-07-28 16:09] LABS: A/G RATIO 0.7 (0.7-1.7); ALPHA-1-GLOBULIN 0.3 g/dL (0.0-0.4); BETA GLOBULIN 0.8 g/dL (0.7-1.3); GAMMA GLOBULIN 0.9 g/dL (0.4-1.8); M-SPIKE Not Observed g/dL (Not Observed)
[2024-07-28] MEDS: PHYTONADIONE 10 MG/1 ML AMPUL SQ ONE (19:45)
[2024-07-29] VITALS (38 sets, daily range): BP systolic 95–146; BP diastolic 54–68; TEMP 97.3–98.4; O2SAT 89–98
[2024-07-29] MEDS ORDERED: PHYTONADIONE 10 MG/1 ML AMPUL ONE (02:14)
[2024-07-29] MEDS ORDERED: PHYTONADIONE 10 MG/1 ML AMPUL SQ SCH (02:15)
[2024-07-29] MEDS: PHYTONADIONE 10 MG/1 ML AMPUL SQ ONE (02:33)
[2024-07-29 05:22] LABS: BASOPHILS # (AUTO) 0.1 K/UL (0.0-0.2); BASOPHILS % (AUTO) 0.3 % (0.0-2.0); EOSINOPHILS # (AUTO) 0.1 K/uL (0.0-0.7); EOSINOPHILS % (AUTO) 0.4 % (0.0-7.0); HEMATOCRIT 35.9 % (36.7-47.1); HEMOGLOBIN 12.4 g/dL (12.5-16.3); LYMPHOCYTES % (AUTO) 5.2 % (20.5-51.5); MEAN CORPUSCULAR HEMOGLOBIN 31.6 uug (23.8-33.4); MEAN CORPUSCULAR HGB CONC 35 g/dL (32.5-36.3); MEAN CORPUSCULAR VOLUME 91.6 fL (73.0-96.2); MONOCYTES # (AUTO) 0.7 K/uL (0.1-1.30); MONOCYTES % (AUTO) 3.5 % (0.0-11.0); NEUTROPHILS # (AUTO) 18.2 K/uL (1.8-8.9); NEUTROPHILS % (AUTO) 90.6 % (38.5-71.5); PLATELET COUNT (AUTO) 66 K/uL (152-348); RED BLOOD CELL COUNT(AUTO) 3.92 MIL/uL (4.06-5.63); WHITE BLOOD COUNT (AUTO) 20.1 K/uL (3.6-10.2)
[2024-07-29 05:48] LABS: ALANINE AMINOTRANSFERASE 378 U/L (16-63); ALBUMIN 1.6 g/dL (3.4-5.0); ALKALINE PHOSPHATASE 120 U/L (50-136); ASPARTATE AMINOTRANSFERASE 220 U/L (15-37); BILIRUBIN,DIRECT 0.8 mg/dL (0.0-0.2); BILIRUBIN,TOTAL 1.5 mg/dL (0.2-1.0); CALCIUM 7.6 mg/dL (8.5-10.1); CARBON DIOXIDE 25 mmol/L (21-32); CHLORIDE 106 mmol/L (98-107); CREATININE 3.8 mg/dL (0.6-1.3); GLUCOSE 147 mg/dL (74-106); MAGNESIUM 1.8 mg/dL (1.8-2.4); PHOSPHOROUS 4.3 mg/dL (2.5-4.9); SODIUM SERUM 143 mmol/L (136-145); TOTAL PROTEIN, SERUM 5.1 g/dL (6.4-8.2)
[2024-07-29 06:03] LABS: UREA NITROGEN, BLOOD 90 mg/dL (7-18)
[2024-07-29 06:27] LABS: ABG BASE EXCESS -3.7 mmol/L (-2.0-3.0); ABG HCO3 17.5 mmol/L (21.0-28.0); ABG PCO2 22.4 mmHg (35.0-48.0); ABG PH 7.511 (7.350-7.450); ABG PO2 57.9 mmHg (83.0-108.0); ABG SITE LEFT RADIAL; ABG TOTAL HEMOGLOBIN 12.3 G/dL (13.5-17.5); AaDO2 93.1 mmHg; COHb 0.3 % (0.5-1.5); MetHb 0.1 % (0.0-1.5); O2Hb 91.9 % (94.0-98.0); VT, ABG 500 mL
[2024-07-29 07:16] LABS: CREATINE KINASE, TOTAL 2589 U/L (39-308)
[2024-07-29 07:30] LABS: FIBRINOGEN ACTIVITY 160 mg/dL (210-360)
[2024-07-29] MEDS: MODAFINIL 100 MG TABLET PO SCH (14:50)
[2024-07-29] MEDS: AMANTADINE HCL 100 MG CAPSULE PO SCH (14:51)
[2024-07-30] VITALS (40 sets, daily range): BP systolic 123–167; BP diastolic 60–83; TEMP 97.6–99.1; O2SAT 94–98
[2024-07-30 05:18] LABS: BASOPHILS % (AUTO) 0.2 % (0.0-2.0); EOSINOPHILS % (AUTO) 0.1 % (0.0-7.0); HEMATOCRIT 34.4 % (36.7-47.1); LYMPHOCYTES # (AUTO) 0.9 K/uL (0.8-4.8); LYMPHOCYTES % (AUTO) 5.2 % (20.5-51.5); MEAN CORPUSCULAR HEMOGLOBIN 32.3 uug (23.8-33.4); MEAN CORPUSCULAR HGB CONC 35 g/dL (32.5-36.3); MEAN CORPUSCULAR VOLUME 92.3 fL (73.0-96.2); MONOCYTES # (AUTO) 0.7 K/uL (0.1-1.30); MONOCYTES % (AUTO) 4.1 % (0.0-11.0); NEUTROPHILS # (AUTO) 15.8 K/uL (1.8-8.9); NEUTROPHILS % (AUTO) 90.4 % (38.5-71.5); PLATELET COUNT (AUTO) 84 K/uL (152-348); RED BLOOD CELL COUNT(AUTO) 3.73 MIL/uL (4.06-5.63); RED CELL DISTRIBUTION WIDTH 14.4 % (12.1-16.2); WHITE BLOOD COUNT (AUTO) 17.5 K/uL (3.6-10.2)
[2024-07-30 05:45] LABS: CALCIUM 7.7 mg/dL (8.5-10.1); CARBON DIOXIDE 27 mmol/L (21-32); CHLORIDE 107 mmol/L (98-107); CREATININE 3.7 mg/dL (0.6-1.3); GLUCOSE 136 mg/dL (74-106); MAGNESIUM 1.9 mg/dL (1.8-2.4); POTASSIUM 3.2 mmol/L (3.5-5.1); SODIUM SERUM 145 mmol/L (136-145)
[2024-07-30 06:10] LABS: UREA NITROGEN, BLOOD 103 mg/dL (7-18)
[2024-07-30 06:30] LABS: ABG BASE EXCESS -0.6 mmol/L (-2.0-3.0); ABG HCO3 23.3 mmol/L (21.0-28.0); ABG PCO2 35.9 mmHg (35.0-48.0); ABG SITE LEFT RADIAL; ABG TOTAL HEMOGLOBIN 13.5 G/dL (13.5-17.5); AaDO2 95.5 mmHg; COHb 0.4 % (0.5-1.5); MetHb 0.4 % (0.0-1.5); O2Hb 93.8 % (94.0-98.0); VT, ABG 500 mL
[2024-07-30 06:55] LABS: BAND % (MANUAL) 6 % (0-10); LYMPHOCYTES % (MANUAL) 8 % (20-40); MONOCYTES % (MANUAL) 5 % (2-10); MYELOCYTES % 1 % (0-0); NEUTROPHILS % (MANUAL) 80 % (42-75)
[2024-07-30] MEDS: ALBUTEROL SULFATE 1.25 MG/3 ML NEBU NEB SCH (07:39)
[2024-07-30] MEDS ORDERED: AMANTADINE HCL 100 MG CAPSULE PO SCH (09:00)
[2024-07-31] VITALS (32 sets, daily range): BP systolic 124–163; BP diastolic 62–78; TEMP 97.4–98.8; O2SAT 94–97
[2024-07-31 05:13] LABS: BASOPHILS % (AUTO) 0.2 % (0.0-2.0); EOSINOPHILS % (AUTO) 0.2 % (0.0-7.0); HEMATOCRIT 35.4 % (36.7-47.1); HEMOGLOBIN 12.1 g/dL (12.5-16.3); LYMPHOCYTES # (AUTO) 0.8 K/uL (0.8-4.8); LYMPHOCYTES % (AUTO) 5.1 % (20.5-51.5); MEAN CORPUSCULAR HEMOGLOBIN 32.1 uug (23.8-33.4); MEAN CORPUSCULAR HGB CONC 34 g/dL (32.5-36.3); MEAN CORPUSCULAR VOLUME 93.4 fL (73.0-96.2); MONOCYTES # (AUTO) 0.7 K/uL (0.1-1.30); MONOCYTES % (AUTO) 4.6 % (0.0-11.0); NEUTROPHILS # (AUTO) 14.1 K/uL (1.8-8.9); NEUTROPHILS % (AUTO) 89.9 % (38.5-71.5); PLATELET COUNT (AUTO) 108 K/uL (152-348); RED BLOOD CELL COUNT(AUTO) 3.79 MIL/uL (4.06-5.63); RED CELL DISTRIBUTION WIDTH 14.8 % (12.1-16.2); WHITE BLOOD COUNT (AUTO) 15.7 K/uL (3.6-10.2)
[2024-07-31 05:28] LABS: CALCIUM 7.6 mg/dL (8.5-10.1); CARBON DIOXIDE 30 mmol/L (21-32); CHLORIDE 109 mmol/L (98-107); CREATININE 3.1 mg/dL (0.6-1.3); GLUCOSE 165 mg/dL (74-106); MAGNESIUM 1.7 mg/dL (1.8-2.4); PHOSPHOROUS 6.8 mg/dL (2.5-4.9); POTASSIUM 3.2 mmol/L (3.5-5.1); SODIUM SERUM 148 mmol/L (136-145)
[2024-07-31 05:34] LABS: UREA NITROGEN, BLOOD 102 mg/dL (7-18)
[2024-07-31 06:08] LABS: ABG BASE EXCESS 2.7 mmol/L (-2.0-3.0); ABG PCO2 40.7 mmHg (35.0-48.0); ABG PO2 92.7 mmHg (83.0-108.0); ABG SITE LEFT RADIAL; ABG TOTAL HEMOGLOBIN 15.7 G/dL (13.5-17.5); AaDO2 97.3 mmHg; COHb 0.5 % (0.5-1.5); MetHb 0.2 % (0.0-1.5); O2Hb 96.4 % (94.0-98.0); VT, ABG 500 mL
[2024-07-31] MEDS: NEPRO 1000 ML GT PRN (10:08)
[2024-07-31] MEDS: PROTEIN SUPPLEMENT (PROSTAT) 30 ML LIQUID NG SCH (13:44)
[2024-08-01] VITALS (24 sets, daily range): BP systolic 139–180; BP diastolic 69–90; TEMP 98.2–102; O2SAT 92–97
[2024-08-01 05:56] LABS: BASOPHILS % (AUTO) 0.3 % (0.0-2.0); EOSINOPHILS % (AUTO) 0.2 % (0.0-7.0); HEMATOCRIT 36.6 % (36.7-47.1); HEMOGLOBIN 12.5 g/dL (12.5-16.3); LYMPHOCYTES # (AUTO) 0.6 K/uL (0.8-4.8); LYMPHOCYTES % (AUTO) 3.3 % (20.5-51.5); MEAN CORPUSCULAR HGB CONC 34 g/dL (32.5-36.3); MEAN CORPUSCULAR VOLUME 93.6 fL (73.0-96.2); MONOCYTES # (AUTO) 0.9 K/uL (0.1-1.30); MONOCYTES % (AUTO) 5.1 % (0.0-11.0); NEUTROPHILS # (AUTO) 15.4 K/uL (1.8-8.9); NEUTROPHILS % (AUTO) 91.1 % (38.5-71.5); PLATELET COUNT (AUTO) 134 K/uL (152-348); RED BLOOD CELL COUNT(AUTO) 3.91 MIL/uL (4.06-5.63); RED CELL DISTRIBUTION WIDTH 14.9 % (12.1-16.2); WHITE BLOOD COUNT (AUTO) 16.9 K/uL (3.6-10.2)
[2024-08-01 05:59] LABS: ABG BASE EXCESS 4.6 mmol/L (-2.0-3.0); ABG HCO3 27.7 mmol/L (21.0-28.0); ABG PCO2 36.1 mmHg (35.0-48.0); ABG PH 7.503 (7.350-7.450); ABG PO2 74.5 mmHg (83.0-108.0); ABG SITE LEFT RADIAL; ABG TOTAL HEMOGLOBIN 13.3 G/dL (13.5-17.5); AaDO2 96.1 mmHg; COHb 0.2 % (0.5-1.5); MetHb 0.3 % (0.0-1.5); O2Hb 94.9 % (94.0-98.0); VT, ABG 500 mL
[2024-08-01 06:27] LABS: ALANINE AMINOTRANSFERASE 176 U/L (16-63); ALBUMIN 1.9 g/dL (3.4-5.0); ALKALINE PHOSPHATASE 121 U/L (50-136); ASPARTATE AMINOTRANSFERASE 107 U/L (15-37); BILIRUBIN,DIRECT 0.4 mg/dL (0.0-0.2); BILIRUBIN,TOTAL 0.8 mg/dL (0.2-1.0); CALCIUM 8.2 mg/dL (8.5-10.1); CARBON DIOXIDE 32 mmol/L (21-32); CHLORIDE 112 mmol/L (98-107); CREATINE KINASE, TOTAL 1498 U/L (39-308); CREATININE 2.6 mg/dL (0.6-1.3); GLUCOSE 153 mg/dL (74-106); MAGNESIUM 1.8 mg/dL (1.8-2.4); PHOSPHOROUS 4.5 mg/dL (2.5-4.9); POTASSIUM 2.9 mmol/L (3.5-5.1); SODIUM SERUM 149 mmol/L (136-145); TOTAL PROTEIN, SERUM 6.2 g/dL (6.4-8.2)
[2024-08-01 06:46] LABS: UREA NITROGEN, BLOOD 112 mg/dL (7-18)
[2024-08-01 07:05] LABS: C-REACTIVE PROTEIN 5.06 mg/dL (0.00-0.30)
[2024-08-01 07:13] LABS: FIBRINOGEN ACTIVITY 182 mg/dL (210-360)
[2024-08-01] MEDS: hydrALAZINE HCL 20 MG/1 ML VIAL IV PRN (09:26)
[2024-08-01] MEDS: hydrALAZINE HCL 50 MG TABLET PO SCH (11:57)
[2024-08-01] MEDS: AMLODIPINE 5 MG TABLET PO SCH (11:57)
[2024-08-01] MEDS: POTASSIUM CHLORIDE 50 ML IV SCH (11:59)
[2024-08-01] MEDS: POTASSIUM CHLORIDE 20 MEQ POWDER PACKET GT ONE (11:59)
[2024-08-01] MEDS: AMIODARONE HCL 200 MG TABLET PO SCH (21:01)
[2024-08-02] VITALS (24 sets, daily range): BP systolic 116–174; BP diastolic 65–111; TEMP 98–100.2; O2SAT 95–99
[2024-08-02] MEDS ORDERED: VANCOMYCIN IV 200 ML ONE (00:17)
[2024-08-02] MEDS ORDERED: MEROPENEM 500MG/NS 50ML PB ***ER PYXIS ONLY IV ONE (00:18)
[2024-08-02] MEDS: MEROPENEM 500 MG in IV NORMAL SALINE 50 ML IV SCH (00:30)
[2024-08-02] MEDS: VANCOMYCIN IV 1,000 MG in IV NORMAL SALINE 250 ML IV ONE (00:55)
[2024-08-02 05:55] LABS: CALCIUM 8.3 mg/dL (8.5-10.1); CARBON DIOXIDE 33 mmol/L (21-32); CHLORIDE 113 mmol/L (98-107); CREATININE 2.3 mg/dL (0.6-1.3); GLUCOSE 265 mg/dL (74-106); POTASSIUM 3.1 mmol/L (3.5-5.1); SODIUM SERUM 155 mmol/L (136-145)
[2024-08-02 05:56] LABS: BASOPHILS % (AUTO) 0.1 % (0.0-2.0); DIFFERENTIAL COMMENT 1; EOSINOPHILS % (AUTO) 0.1 % (0.0-7.0); HEMATOCRIT 40.6 % (36.7-47.1); HEMOGLOBIN 13.7 g/dL (12.5-16.3); LYMPHOCYTES # (AUTO) 0.5 K/uL (0.8-4.8); LYMPHOCYTES % (AUTO) 2.5 % (20.5-51.5); MEAN CORPUSCULAR HGB CONC 34 g/dL (32.5-36.3); MEAN CORPUSCULAR VOLUME 94.8 fL (73.0-96.2); MONOCYTES # (AUTO) 1.1 K/uL (0.1-1.30); MONOCYTES % (AUTO) 5.3 % (0.0-11.0); PLATELET COUNT (AUTO) 153 K/uL (152-348); RED BLOOD CELL COUNT(AUTO) 4.29 MIL/uL (4.06-5.63); RED CELL DISTRIBUTION WIDTH 14.9 % (12.1-16.2); WHITE BLOOD COUNT (AUTO) 20.6 K/uL (3.6-10.2)
[2024-08-02] MEDS: PANTOPRAZOLE SODIUM 40 MG TABLET.DR PO SCH (06:11)
[2024-08-02 06:16] LABS: UREA NITROGEN, BLOOD 101 mg/dL (7-18)
[2024-08-02] MEDS: FREE WATER VIA TUBE FEEDING GT SCH (10:07)
[2024-08-02] MEDS: POTASSIUM CHLORIDE 50 ML IV SCH (10:54)
[2024-08-02] MEDS: hydrALAZINE HCL 50 MG TABLET PO SCH (14:09)
[2024-08-02] MEDS: REMEDY ESSENTIAL ZINC PASTE 113 GM TP PRN (17:22)
[2024-08-03] VITALS (24 sets, daily range): BP systolic 118–171; BP diastolic 60–85; TEMP 98.1–100.2; O2SAT 95–100
[2024-08-03 05:14] LABS: BASOPHILS # (AUTO) 0.1 K/UL (0.0-0.2); BASOPHILS % (AUTO) 0.3 % (0.0-2.0); EOSINOPHILS # (AUTO) 0.1 K/uL (0.0-0.7); EOSINOPHILS % (AUTO) 0.7 % (0.0-7.0); HEMATOCRIT 38.4 % (36.7-47.1); HEMOGLOBIN 13.1 g/dL (12.5-16.3); LYMPHOCYTES # (AUTO) 0.9 K/uL (0.8-4.8); LYMPHOCYTES % (AUTO) 4.7 % (20.5-51.5); MEAN CORPUSCULAR HEMOGLOBIN 32.3 uug (23.8-33.4); MEAN CORPUSCULAR HGB CONC 34 g/dL (32.5-36.3); MEAN CORPUSCULAR VOLUME 94.9 fL (73.0-96.2); MONOCYTES # (AUTO) 1.3 K/uL (0.1-1.30); MONOCYTES % (AUTO) 6.7 % (0.0-11.0); NEUTROPHILS # (AUTO) 16.5 K/uL (1.8-8.9); NEUTROPHILS % (AUTO) 87.6 % (38.5-71.5); PLATELET COUNT (AUTO) 157 K/uL (152-348); RED BLOOD CELL COUNT(AUTO) 4.05 MIL/uL (4.06-5.63); RED CELL DISTRIBUTION WIDTH 15.1 % (12.1-16.2); WHITE BLOOD COUNT (AUTO) 18.8 K/uL (3.6-10.2)
[2024-08-03 05:26] LABS: CALCIUM 8.2 mg/dL (8.5-10.1); CARBON DIOXIDE 33 mmol/L (21-32); CHLORIDE 114 mmol/L (98-107); GLUCOSE 176 mg/dL (74-106); POTASSIUM 3.1 mmol/L (3.5-5.1); SODIUM SERUM 155 mmol/L (136-145); VANCOMYCIN,RANDOM 9.6 ug/mL (20.0-30.0)
[2024-08-03 05:31] LABS: UREA NITROGEN, BLOOD 94 mg/dL (7-18)
[2024-08-03] MEDS ORDERED: FREE WATER VIA TUBE FEEDING GT SCH (06:00)
[2024-08-03] MEDS: VANCOMYCIN IV 1,250 MG in IV DEXTROSE 5% 250 ML IV ONE (07:48)
[2024-08-03] MEDS: IV D5W 1000ML 1,000 ML IV ONE (08:44)
[2024-08-03 09:38] LABS: FIBRINOGEN ACTIVITY 185 mg/dL (210-360)
[2024-08-03] MEDS: POTASSIUM CHLORIDE 20 MEQ POWDER PACKET GT ONE (10:42)
[2024-08-03] MEDS: FREE WATER VIA TUBE FEEDING GT SCH (14:37)
[2024-08-03] MEDS: MEROPENEM 1 G in IV NORMAL SALINE 100 ML IV SCH (17:15)
[2024-08-04] VITALS (23 sets, daily range): BP systolic 97–184; BP diastolic 56–77; TEMP 98.6–99; O2SAT 95–100
[2024-08-04 05:08] LABS: BASOPHILS # (AUTO) 0.1 K/UL (0.0-0.2); BASOPHILS % (AUTO) 0.4 % (0.0-2.0); EOSINOPHILS # (AUTO) 0.1 K/uL (0.0-0.7); EOSINOPHILS % (AUTO) 0.8 % (0.0-7.0); HEMOGLOBIN 12.3 g/dL (12.5-16.3); LYMPHOCYTES % (AUTO) 5.6 % (20.5-51.5); MEAN CORPUSCULAR HEMOGLOBIN 31.8 uug (23.8-33.4); MEAN CORPUSCULAR HGB CONC 33 g/dL (32.5-36.3); MONOCYTES # (AUTO) 1.2 K/uL (0.1-1.30); MONOCYTES % (AUTO) 6.8 % (0.0-11.0); NEUTROPHILS # (AUTO) 15.6 K/uL (1.8-8.9); NEUTROPHILS % (AUTO) 86.4 % (38.5-71.5); PLATELET COUNT (AUTO) 145 K/uL (152-348); RED BLOOD CELL COUNT(AUTO) 3.86 MIL/uL (4.06-5.63); RED CELL DISTRIBUTION WIDTH 14.9 % (12.1-16.2)
[2024-08-04 05:42] LABS: ALANINE AMINOTRANSFERASE 108 U/L (16-63); ALBUMIN 1.9 g/dL (3.4-5.0); ALKALINE PHOSPHATASE 113 U/L (50-136); ASPARTATE AMINOTRANSFERASE 68 U/L (15-37); BILIRUBIN,DIRECT 0.4 mg/dL (0.0-0.2); CALCIUM 7.7 mg/dL (8.5-10.1); CARBON DIOXIDE 29 mmol/L (21-32); CHLORIDE 102 mmol/L (98-107); CREATINE KINASE, TOTAL 206 U/L (39-308); CREATININE 1.7 mg/dL (0.6-1.3); MAGNESIUM 1.5 mg/dL (1.8-2.4); PHOSPHOROUS 2.9 mg/dL (2.5-4.9); POTASSIUM 2.9 mmol/L (3.5-5.1); SODIUM SERUM 140 mmol/L (136-145); TOTAL PROTEIN, SERUM 6.3 g/dL (6.4-8.2); UREA NITROGEN, BLOOD 74 mg/dL (7-18); VANCOMYCIN,RANDOM 17.9 ug/mL (20.0-30.0)
[2024-08-04 05:48] LABS: GLUCOSE 504 mg/dL (74-106)
[2024-08-04 06:40] LABS: ABG BASE EXCESS 6.3 mmol/L (-2.0-3.0); ABG HCO3 29.7 mmol/L (21.0-28.0); ABG PCO2 38.4 mmHg (35.0-48.0); ABG PH 7.506 (7.350-7.450); ABG PO2 93.5 mmHg (83.0-108.0); ABG SITE LEFT RADIAL; AaDO2 97.7 mmHg; COHb 0.8 % (0.5-1.5); CPAP,BG 8 cmH20; MetHb 0.3 % (0.0-1.5); O2Hb 96.6 % (94.0-98.0)
[2024-08-04 06:52] LABS: C-REACTIVE PROTEIN 2.64 mg/dL (0.00-0.30)
[2024-08-04] MEDS: VANCOMYCIN HCL 750 MG in IV DEXTROSE 5% 250 ML IV ONE (08:31)
[2024-08-04] MEDS: POTASSIUM CHLORIDE 20 MEQ POWDER PACKET GT ONE (08:36)
[2024-08-04] MEDS: POTASSIUM CHLORIDE 50 ML IV SCH (11:15)
[2024-08-04] MEDS: MAGNESIUM SULFATE/D5W 100 ML IV SCH (11:15)
[2024-08-05] VITALS (24 sets, daily range): BP systolic 103–171; BP diastolic 54–76; TEMP 98.6–100.9; O2SAT 96–99
[2024-08-05 05:08] LABS: BASOPHILS # (AUTO) 0.1 K/UL (0.0-0.2); BASOPHILS % (AUTO) 0.4 % (0.0-2.0); EOSINOPHILS # (AUTO) 0.1 K/uL (0.0-0.7); EOSINOPHILS % (AUTO) 0.7 % (0.0-7.0); HEMATOCRIT 36.5 % (36.7-47.1); HEMOGLOBIN 11.8 g/dL (12.5-16.3); LYMPHOCYTES # (AUTO) 0.8 K/uL (0.8-4.8); LYMPHOCYTES % (AUTO) 4.7 % (20.5-51.5); MEAN CORPUSCULAR HEMOGLOBIN 30.4 uug (23.8-33.4); MEAN CORPUSCULAR HGB CONC 32 g/dL (32.5-36.3); MEAN CORPUSCULAR VOLUME 94.2 fL (73.0-96.2); MONOCYTES # (AUTO) 1.2 K/uL (0.1-1.30); MONOCYTES % (AUTO) 7.2 % (0.0-11.0); NEUTROPHILS # (AUTO) 14.8 K/uL (1.8-8.9); PLATELET COUNT (AUTO) 156 K/uL (152-348); RED BLOOD CELL COUNT(AUTO) 3.88 MIL/uL (4.06-5.63); RED CELL DISTRIBUTION WIDTH 14.7 % (12.1-16.2)
[2024-08-05 05:42] LABS: CALCIUM 8.4 mg/dL (8.5-10.1); CARBON DIOXIDE 31 mmol/L (21-32); CHLORIDE 107 mmol/L (98-107); CREATININE 1.5 mg/dL (0.6-1.3); GLUCOSE 200 mg/dL (74-106); MAGNESIUM 2.2 mg/dL (1.8-2.4); PHOSPHOROUS 3.4 mg/dL (2.5-4.9); POTASSIUM 3.4 mmol/L (3.5-5.1); SODIUM SERUM 144 mmol/L (136-145); UREA NITROGEN, BLOOD 71 mg/dL (7-18); VANCOMYCIN,RANDOM 14.1 ug/mL (20.0-30.0)
[2024-08-05 05:47] LABS: ABG BASE EXCESS 3.7 mmol/L (-2.0-3.0); ABG HCO3 26.5 mmol/L (21.0-28.0); ABG PCO2 34.1 mmHg (35.0-48.0); ABG PH 7.508 (7.350-7.450); ABG PO2 84.1 mmHg (83.0-108.0); ABG SITE LEFT BRACHIAL; ABG TOTAL HEMOGLOBIN 13.2 G/dL (13.5-17.5); AaDO2 97.2 mmHg; COHb 0.8 % (0.5-1.5); MetHb 0.3 % (0.0-1.5); O2Hb 95.8 % (94.0-98.0); VT, ABG 500 mL
[2024-08-05] MEDS ORDERED: POTASSIUM CHLORIDE 20 MEQ TAB.PRT.SR PO ONE (07:15)
[2024-08-05] MEDS ORDERED: VANCOMYCIN IV 1,000 MG in IV DEXTROSE 5% 250 ML IV ONE (08:00)
[2024-08-05] MEDS: VANCOMYCIN IV 1,250 MG in IV DEXTROSE 5% 250 ML IV ONE (09:29)
[2024-08-05] MEDS: POTASSIUM CHLORIDE 20 MEQ POWDER PACKET GT ONE (12:38)
[2024-08-06] VITALS (25 sets, daily range): BP systolic 109–165; BP diastolic 57–75; TEMP 97.8–100.8; O2SAT 96–100
[2024-08-06 05:04] LABS: BASOPHILS # (AUTO) 0.1 K/UL (0.0-0.2); BASOPHILS % (AUTO) 0.5 % (0.0-2.0); EOSINOPHILS # (AUTO) 0.2 K/uL (0.0-0.7); EOSINOPHILS % (AUTO) 0.9 % (0.0-7.0); HEMATOCRIT 39.4 % (36.7-47.1); HEMOGLOBIN 12.8 g/dL (12.5-16.3); LYMPHOCYTES # (AUTO) 0.8 K/uL (0.8-4.8); LYMPHOCYTES % (AUTO) 4.3 % (20.5-51.5); MEAN CORPUSCULAR HGB CONC 33 g/dL (32.5-36.3); MEAN CORPUSCULAR VOLUME 95.1 fL (73.0-96.2); MONOCYTES # (AUTO) 1.2 K/uL (0.1-1.30); MONOCYTES % (AUTO) 6.1 % (0.0-11.0); NEUTROPHILS # (AUTO) 17.5 K/uL (1.8-8.9); NEUTROPHILS % (AUTO) 88.2 % (38.5-71.5); PLATELET COUNT (AUTO) 218 K/uL (152-348); RED BLOOD CELL COUNT(AUTO) 4.14 MIL/uL (4.06-5.63); RED CELL DISTRIBUTION WIDTH 14.4 % (12.1-16.2); WHITE BLOOD COUNT (AUTO) 19.8 K/uL (3.6-10.2)
[2024-08-06 05:23] LABS: CALCIUM 8.7 mg/dL (8.5-10.1); CARBON DIOXIDE 31 mmol/L (21-32); CHLORIDE 108 mmol/L (98-107); CREATININE 1.5 mg/dL (0.6-1.3); GLUCOSE 229 mg/dL (74-106); MAGNESIUM 2.1 mg/dL (1.8-2.4); PHOSPHOROUS 3.4 mg/dL (2.5-4.9); POTASSIUM 3.8 mmol/L (3.5-5.1); SODIUM SERUM 145 mmol/L (136-145); UREA NITROGEN, BLOOD 72 mg/dL (7-18)
[2024-08-06] MEDS ORDERED: VANCOMYCIN IV 1,000 MG in IV DEXTROSE 5% 250 ML IV ONE (08:00)
[2024-08-06] MEDS: VANCOMYCIN IV 1,250 MG in IV DEXTROSE 5% 250 ML IV ONE (08:41)
[2024-08-07] VITALS (24 sets, daily range): BP systolic 105–170; BP diastolic 56–89; TEMP 98.9–100.2; O2SAT 97–100
[2024-08-07 05:09] LABS: BASOPHILS # (AUTO) 0.2 K/UL (0.0-0.2); EOSINOPHILS # (AUTO) 0.2 K/uL (0.0-0.7); EOSINOPHILS % (AUTO) 1.2 % (0.0-7.0); HEMATOCRIT 34.9 % (36.7-47.1); HEMOGLOBIN 11.6 g/dL (12.5-16.3); LYMPHOCYTES # (AUTO) 1.1 K/uL (0.8-4.8); LYMPHOCYTES % (AUTO) 6.7 % (20.5-51.5); MEAN CORPUSCULAR HEMOGLOBIN 31.2 uug (23.8-33.4); MEAN CORPUSCULAR HGB CONC 33 g/dL (32.5-36.3); MEAN CORPUSCULAR VOLUME 93.7 fL (73.0-96.2); MONOCYTES # (AUTO) 1.2 K/uL (0.1-1.30); MONOCYTES % (AUTO) 7.2 % (0.0-11.0); NEUTROPHILS # (AUTO) 14.4 K/uL (1.8-8.9); NEUTROPHILS % (AUTO) 83.9 % (38.5-71.5); PLATELET COUNT (AUTO) 239 K/uL (152-348); RED BLOOD CELL COUNT(AUTO) 3.72 MIL/uL (4.06-5.63); RED CELL DISTRIBUTION WIDTH 14.4 % (12.1-16.2); WHITE BLOOD COUNT (AUTO) 17.2 K/uL (3.6-10.2)
[2024-08-07 05:14] LABS: DIFFERENTIAL COMMENT 1
[2024-08-07 05:28] LABS: CALCIUM 8.3 mg/dL (8.5-10.1); CARBON DIOXIDE 32 mmol/L (21-32); CHLORIDE 113 mmol/L (98-107); CREATININE 1.4 mg/dL (0.6-1.3); GLUCOSE 189 mg/dL (74-106); PHOSPHOROUS 3.1 mg/dL (2.5-4.9); POTASSIUM 3.9 mmol/L (3.5-5.1); SODIUM SERUM 150 mmol/L (136-145); UREA NITROGEN, BLOOD 62 mg/dL (7-18)
[2024-08-07 05:43] LABS: VANCOMYCIN,RANDOM 18.1 ug/mL (20.0-30.0)
[2024-08-07 08:15] LABS: ABG BASE EXCESS 7.1 mmol/L (-2.0-3.0); ABG HCO3 30.9 mmol/L (21.0-28.0); ABG PCO2 40.6 mmHg (35.0-48.0); ABG PH 7.499 (7.350-7.450); ABG PO2 77.1 mmHg (83.0-108.0); ABG SITE LEFT RADIAL; ABG TOTAL HEMOGLOBIN 12.6 G/dL (13.5-17.5); AaDO2 96.3 mmHg; COHb 0.3 % (0.5-1.5); MetHb 0.3 % (0.0-1.5); O2Hb 95.2 % (94.0-98.0); VT, ABG 500 mL
[2024-08-07] MEDS: VANCOMYCIN IV 1,250 MG in IV DEXTROSE 5% 250 ML IV ONE (10:07)
[2024-08-08] VITALS (24 sets, daily range): BP systolic 112–159; BP diastolic 60–90; TEMP 98.7–98.9; O2SAT 93–100
[2024-08-08] MEDS: FREE WATER VIA TUBE FEEDING GT SCH (07:00)
[2024-08-08 07:36] LABS: BASOPHILS # (AUTO) 0.1 K/UL (0.0-0.2); BASOPHILS % (AUTO) 0.6 % (0.0-2.0); EOSINOPHILS # (AUTO) 0.3 K/uL (0.0-0.7); EOSINOPHILS % (AUTO) 1.6 % (0.0-7.0); HEMATOCRIT 36.1 % (36.7-47.1); HEMOGLOBIN 12.2 g/dL (12.5-16.3); LYMPHOCYTES # (AUTO) 0.9 K/uL (0.8-4.8); LYMPHOCYTES % (AUTO) 5.4 % (20.5-51.5); MEAN CORPUSCULAR HEMOGLOBIN 31.9 uug (23.8-33.4); MEAN CORPUSCULAR HGB CONC 34 g/dL (32.5-36.3); MEAN CORPUSCULAR VOLUME 94.2 fL (73.0-96.2); MONOCYTES # (AUTO) 1.6 K/uL (0.1-1.30); MONOCYTES % (AUTO) 9.6 % (0.0-11.0); NEUTROPHILS # (AUTO) 13.4 K/uL (1.8-8.9); NEUTROPHILS % (AUTO) 82.8 % (38.5-71.5); PLATELET COUNT (AUTO) 283 K/uL (152-348); RED BLOOD CELL COUNT(AUTO) 3.83 MIL/uL (4.06-5.63); RED CELL DISTRIBUTION WIDTH 14.5 % (12.1-16.2); WHITE BLOOD COUNT (AUTO) 16.2 K/uL (3.6-10.2)
[2024-08-08 07:37] LABS: DIFFERENTIAL COMMENT 1
[2024-08-08 08:10] LABS: CALCIUM 8.5 mg/dL (8.5-10.1); CARBON DIOXIDE 33 mmol/L (21-32); CHLORIDE 112 mmol/L (98-107); CREATININE 1.3 mg/dL (0.6-1.3); GLUCOSE 165 mg/dL (74-106); MAGNESIUM 1.9 mg/dL (1.8-2.4); PHOSPHOROUS 3.4 mg/dL (2.5-4.9); POTASSIUM 3.7 mmol/L (3.5-5.1); SODIUM SERUM 150 mmol/L (136-145); UREA NITROGEN, BLOOD 54 mg/dL (7-18)
[2024-08-08 08:50] LABS: VANCOMYCIN,RANDOM 18.5 ug/mL (20.0-30.0)
[2024-08-08] MEDS ORDERED: VANCOMYCIN IV 1,250 MG in IV DEXTROSE 5% 250 ML IV ONE (09:45)
[2024-08-08] MEDS: VANCOMYCIN IV 1,250 MG in IV DEXTROSE 5% 250 ML IV ONE (09:49)
[2024-08-08] MEDS: SODIUM HYPOCHLORITE 0.125% (QUARTER STRENGTH) 473 ML BOTTLE TP SCH (14:00)
[2024-08-08] MEDS: MORPHINE SULFATE 2 MG/1 ML DISP.SYRIN IV PRN (14:02)
[2024-08-08] MEDS: PANTOPRAZOLE ORAL SUSPENSION 40 MG SUSPDR.PKT GT SCH (14:58)
[2024-08-08] MEDS: QUETIAPINE FUMARATE 25 MG TABLET PO PRN (17:52)
[2024-08-09] VITALS (27 sets, daily range): BP systolic 108–161; BP diastolic 59–78; TEMP 98.2–98.8; O2SAT 97–100
[2024-08-09 11:25] LABS: ABG BASE EXCESS 5.9 mmol/L (-2.0-3.0); ABG HCO3 29.5 mmol/L (21.0-28.0); ABG PCO2 39.1 mmHg (35.0-48.0); ABG PH 7.495 (7.350-7.450); ABG PO2 84.1 mmHg (83.0-108.0); ABG SITE LEFT RADIAL; ABG TOTAL HEMOGLOBIN 12.4 G/dL (13.5-17.5); COHb 0.1 % (0.5-1.5); MetHb 0.2 % (0.0-1.5); O2Hb 96.3 % (94.0-98.0)
[2024-08-09] MEDS ORDERED: IPRATROPIUM BROMIDE 0.5 MG/2.5 ML NEBU NEB PRN (12:15)
[2024-08-09] MEDS ORDERED: DC PROPOFOL ONCE EXTUBATED XX PRN (12:15)
[2024-08-09] MEDS ORDERED: ALBUTEROL SULFATE 1.25 MG/3 ML NEBU NEB PRN (13:30)
[2024-08-09 14:44] LABS: BASOPHILS % (AUTO) 0.2 % (0.0-2.0); EOSINOPHILS # (AUTO) 0.4 K/uL (0.0-0.7); EOSINOPHILS % (AUTO) 2.6 % (0.0-7.0); HEMATOCRIT 34.6 % (36.7-47.1); HEMOGLOBIN 11.4 g/dL (12.5-16.3); LYMPHOCYTES # (AUTO) 0.9 K/uL (0.8-4.8); LYMPHOCYTES % (AUTO) 5.8 % (20.5-51.5); MEAN CORPUSCULAR HEMOGLOBIN 31.1 uug (23.8-33.4); MEAN CORPUSCULAR HGB CONC 33 g/dL (32.5-36.3); MEAN CORPUSCULAR VOLUME 94.3 fL (73.0-96.2); MONOCYTES # (AUTO) 1.3 K/uL (0.1-1.30); MONOCYTES % (AUTO) 8.3 % (0.0-11.0); NEUTROPHILS # (AUTO) 12.9 K/uL (1.8-8.9); NEUTROPHILS % (AUTO) 83.1 % (38.5-71.5); PLATELET COUNT (AUTO) 269 K/uL (152-348); RED BLOOD CELL COUNT(AUTO) 3.67 MIL/uL (4.06-5.63); RED CELL DISTRIBUTION WIDTH 14.7 % (12.1-16.2); WHITE BLOOD COUNT (AUTO) 15.6 K/uL (3.6-10.2)
[2024-08-09 14:57] LABS: CALCIUM 8.1 mg/dL (8.5-10.1); CARBON DIOXIDE 29 mmol/L (21-32); CHLORIDE 115 mmol/L (98-107); CREATININE 1.2 mg/dL (0.6-1.3); GLUCOSE 173 mg/dL (74-106); MAGNESIUM 2.1 mg/dL (1.8-2.4); PHOSPHOROUS 4.1 mg/dL (2.5-4.9); POTASSIUM 3.9 mmol/L (3.5-5.1); SODIUM SERUM 153 mmol/L (136-145); UREA NITROGEN, BLOOD 57 mg/dL (7-18)
[2024-08-09] MEDS: VANCOMYCIN IV 1,250 MG in IV DEXTROSE 5% 250 ML IV ONE (17:22)
[2024-08-09] MEDS: FREE WATER VIA TUBE FEEDING GT SCH (17:23)
[2024-08-09] MEDS: QUETIAPINE FUMARATE 25 MG TABLET PO SCH (20:26)
[2024-08-09] MEDS: MEROPENEM 1 G in IV NORMAL SALINE 100 ML IV SCH (21:28)
[2024-08-10] VITALS (22 sets, daily range): BP systolic 118–155; BP diastolic 59–77; TEMP 97.3–98.4; O2SAT 97–100
[2024-08-10 12:01] LABS: BASOPHILS # (AUTO) 0.1 K/UL (0.0-0.2); BASOPHILS % (AUTO) 0.6 % (0.0-2.0); EOSINOPHILS # (AUTO) 0.5 K/uL (0.0-0.7); EOSINOPHILS % (AUTO) 3.5 % (0.0-7.0); HEMATOCRIT 33.6 % (36.7-47.1); HEMOGLOBIN 10.9 g/dL (12.5-16.3); LYMPHOCYTES # (AUTO) 0.9 K/uL (0.8-4.8); LYMPHOCYTES % (AUTO) 6.9 % (20.5-51.5); MEAN CORPUSCULAR HGB CONC 33 g/dL (32.5-36.3); MEAN CORPUSCULAR VOLUME 95.1 fL (73.0-96.2); MONOCYTES % (AUTO) 7.3 % (0.0-11.0); NEUTROPHILS # (AUTO) 10.7 K/uL (1.8-8.9); NEUTROPHILS % (AUTO) 81.7 % (38.5-71.5); PLATELET COUNT (AUTO) 235 K/uL (152-348); RED BLOOD CELL COUNT(AUTO) 3.53 MIL/uL (4.06-5.63); RED CELL DISTRIBUTION WIDTH 14.6 % (12.1-16.2); WHITE BLOOD COUNT (AUTO) 13.1 K/uL (3.6-10.2)
[2024-08-10 12:12] LABS: CARBON DIOXIDE 29 mmol/L (21-32); CHLORIDE 118 mmol/L (98-107); CREATININE 1.2 mg/dL (0.6-1.3); GLUCOSE 161 mg/dL (74-106); MAGNESIUM 2.1 mg/dL (1.8-2.4); PHOSPHOROUS 3.6 mg/dL (2.5-4.9); POTASSIUM 3.7 mmol/L (3.5-5.1); SODIUM SERUM 155 mmol/L (136-145); UREA NITROGEN, BLOOD 56 mg/dL (7-18); VANCOMYCIN,RANDOM 18.6 ug/mL (20.0-30.0)
[2024-08-10] MEDS: VANCOMYCIN IV 1,000 MG in IV DEXTROSE 5% 250 ML IV ONE (13:27)
[2024-08-11] VITALS (15 sets, daily range): BP systolic 118–150; BP diastolic 61–79; TEMP 97.3–98.3; O2SAT 94–100
[2024-08-11 05:13] LABS: BASOPHILS # (AUTO) 0.1 K/UL (0.0-0.2); BASOPHILS % (AUTO) 0.7 % (0.0-2.0); EOSINOPHILS # (AUTO) 0.4 K/uL (0.0-0.7); EOSINOPHILS % (AUTO) 3.7 % (0.0-7.0); HEMATOCRIT 36.9 % (36.7-47.1); HEMOGLOBIN 12.1 g/dL (12.5-16.3); LYMPHOCYTES # (AUTO) 0.9 K/uL (0.8-4.8); LYMPHOCYTES % (AUTO) 7.9 % (20.5-51.5); MEAN CORPUSCULAR HEMOGLOBIN 31.1 uug (23.8-33.4); MEAN CORPUSCULAR HGB CONC 33 g/dL (32.5-36.3); MEAN CORPUSCULAR VOLUME 94.7 fL (73.0-96.2); MONOCYTES # (AUTO) 0.9 K/uL (0.1-1.30); MONOCYTES % (AUTO) 7.3 % (0.0-11.0); NEUTROPHILS # (AUTO) 9.5 K/uL (1.8-8.9); NEUTROPHILS % (AUTO) 80.4 % (38.5-71.5); PLATELET COUNT (AUTO) 259 K/uL (152-348); RED CELL DISTRIBUTION WIDTH 14.8 % (12.1-16.2); WHITE BLOOD COUNT (AUTO) 11.8 K/uL (3.6-10.2)
[2024-08-11 05:25] LABS: CALCIUM 8.5 mg/dL (8.5-10.1); CARBON DIOXIDE 31 mmol/L (21-32); CHLORIDE 116 mmol/L (98-107); CREATININE 1.4 mg/dL (0.6-1.3); GLUCOSE 168 mg/dL (74-106); MAGNESIUM 2.2 mg/dL (1.8-2.4); PHOSPHOROUS 4.3 mg/dL (2.5-4.9); POTASSIUM 3.9 mmol/L (3.5-5.1); SODIUM SERUM 153 mmol/L (136-145); UREA NITROGEN, BLOOD 60 mg/dL (7-18); VANCOMYCIN,RANDOM 23.2 ug/mL (20.0-30.0)
[2024-08-11 05:36] LABS: ABG BASE EXCESS 2.3 mmol/L (-2.0-3.0); ABG HCO3 26.2 mmol/L (21.0-28.0); ABG PCO2 38.4 mmHg (35.0-48.0); ABG PH 7.452 (7.350-7.450); ABG SITE LEFT RADIAL; ABG TOTAL HEMOGLOBIN 12.4 G/dL (13.5-17.5); AaDO2 97.9 mmHg; CPAP,BG 6 cmH20; MetHb 0.2 % (0.0-1.5); O2Hb 97.5 % (94.0-98.0)
[2024-08-11] MEDS: FREE WATER VIA TUBE FEEDING GT SCH (08:29)
[2024-08-12 00:02] VITALS: BP 151/74; TEMP 99; O2SAT 98
[2024-08-12 04:52] VITALS: BP 154/76; TEMP 98.7; O2SAT 97
[2024-08-12 07:49] LABS: BASOPHILS % (AUTO) 0.4 % (0.0-2.0); EOSINOPHILS # (AUTO) 0.3 K/uL (0.0-0.7); EOSINOPHILS % (AUTO) 2.3 % (0.0-7.0); HEMATOCRIT 36.6 % (36.7-47.1); HEMOGLOBIN 12.4 g/dL (12.5-16.3); LYMPHOCYTES % (AUTO) 8.1 % (20.5-51.5); MEAN CORPUSCULAR HGB CONC 34 g/dL (32.5-36.3); MEAN CORPUSCULAR VOLUME 94.4 fL (73.0-96.2); MONOCYTES # (AUTO) 0.9 K/uL (0.1-1.30); MONOCYTES % (AUTO) 7.3 % (0.0-11.0); NEUTROPHILS # (AUTO) 10.3 K/uL (1.8-8.9); NEUTROPHILS % (AUTO) 81.9 % (38.5-71.5); PLATELET COUNT (AUTO) 252 K/uL (152-348); RED BLOOD CELL COUNT(AUTO) 3.88 MIL/uL (4.06-5.63); RED CELL DISTRIBUTION WIDTH 14.6 % (12.1-16.2); WHITE BLOOD COUNT (AUTO) 12.5 K/uL (3.6-10.2)
[2024-08-12 07:57] LABS: DIFFERENTIAL COMMENT 1
[2024-08-12 08:00] VITALS: TEMP 97.6
[2024-08-12 08:06] LABS: ALANINE AMINOTRANSFERASE 113 U/L (16-63); ALBUMIN 1.9 g/dL (3.4-5.0); ALKALINE PHOSPHATASE 195 U/L (50-136); ASPARTATE AMINOTRANSFERASE 83 U/L (15-37); BILIRUBIN,DIRECT 0.3 mg/dL (0.0-0.2); BILIRUBIN,TOTAL 0.8 mg/dL (0.2-1.0); CALCIUM 8.6 mg/dL (8.5-10.1); CARBON DIOXIDE 29 mmol/L (21-32); CHLORIDE 119 mmol/L (98-107); CREATININE 1.6 mg/dL (0.6-1.3); GLUCOSE 144 mg/dL (74-106); MAGNESIUM 2.4 mg/dL (1.8-2.4); PHOSPHOROUS 4.1 mg/dL (2.5-4.9); POTASSIUM 3.8 mmol/L (3.5-5.1); SODIUM SERUM 156 mmol/L (136-145); TOTAL PROTEIN, SERUM 7.3 g/dL (6.4-8.2); UREA NITROGEN, BLOOD 62 mg/dL (7-18); VANCOMYCIN,RANDOM 15.6 ug/mL (20.0-30.0)
[2024-08-12 09:42] LABS: ABG BASE EXCESS 4.8 mmol/L (-2.0-3.0); ABG HCO3 27.9 mmol/L (21.0-28.0); ABG PCO2 36.2 mmHg (35.0-48.0); ABG PH 7.505 (7.350-7.450); ABG PO2 64.8 mmHg (83.0-108.0); ABG TOTAL HEMOGLOBIN 12.9 G/dL (13.5-17.5); AaDO2 94.5 mmHg; COHb 0.1 % (0.5-1.5); MetHb 0.2 % (0.0-1.5); O2Hb 93.2 % (94.0-98.0)
[2024-08-12 12:00] VITALS: TEMP 97.8
[2024-08-12] MEDS: IV D5W 1000ML 1,000 ML IV PRN (16:46)
[2024-08-12] MEDS ORDERED: DEXTROSE 50% 50 ML DISP.SYRIN IV PRN (19:00)
[2024-08-12 20:14] VITALS: BP 145/76; TEMP 97; O2SAT 94
[2024-08-12] MEDS: BLOOD SUGAR DIAGNOSTIC 1 EACH STRIP VI SCH (20:41)
[2024-08-13] VITALS (7 sets, daily range): BP systolic 114–128; BP diastolic 55–66; TEMP 97.8–98.4; O2SAT 96–100
[2024-08-13] MEDS: INSULIN REGULAR, HUMAN 1000 UNIT/10 ML VIAL SQ PRN (08:20)
[2024-08-13 14:55] LABS: BASOPHILS # (AUTO) 0.1 K/UL (0.0-0.2); BASOPHILS % (AUTO) 0.4 % (0.0-2.0); EOSINOPHILS # (AUTO) 0.3 K/uL (0.0-0.7); EOSINOPHILS % (AUTO) 1.9 % (0.0-7.0); HEMATOCRIT 35.4 % (36.7-47.1); HEMOGLOBIN 11.8 g/dL (12.5-16.3); LYMPHOCYTES % (AUTO) 6.6 % (20.5-51.5); MEAN CORPUSCULAR HEMOGLOBIN 31.1 uug (23.8-33.4); MEAN CORPUSCULAR HGB CONC 33 g/dL (32.5-36.3); MEAN CORPUSCULAR VOLUME 93.5 fL (73.0-96.2); MONOCYTES % (AUTO) 6.6 % (0.0-11.0); NEUTROPHILS # (AUTO) 13.1 K/uL (1.8-8.9); NEUTROPHILS % (AUTO) 84.5 % (38.5-71.5); PLATELET COUNT (AUTO) 206 K/uL (152-348); RED BLOOD CELL COUNT(AUTO) 3.79 MIL/uL (4.06-5.63); RED CELL DISTRIBUTION WIDTH 14.5 % (12.1-16.2); WHITE BLOOD COUNT (AUTO) 15.5 K/uL (3.6-10.2)
[2024-08-13 14:56] LABS: DIFFERENTIAL COMMENT 1
[2024-08-13 15:09] LABS: ALANINE AMINOTRANSFERASE 90 U/L (16-63); ALBUMIN 1.8 g/dL (3.4-5.0); ALKALINE PHOSPHATASE 205 U/L (50-136); ASPARTATE AMINOTRANSFERASE 48 U/L (15-37); BILIRUBIN,TOTAL 0.5 mg/dL (0.2-1.0); CALCIUM 8.3 mg/dL (8.5-10.1); CARBON DIOXIDE 27 mmol/L (21-32); CHLORIDE 116 mmol/L (98-107); CREATININE 1.6 mg/dL (0.6-1.3); GLUCOSE 180 mg/dL (74-106); MAGNESIUM 2.1 mg/dL (1.8-2.4); POTASSIUM 3.5 mmol/L (3.5-5.1); SODIUM SERUM 154 mmol/L (136-145); TOTAL PROTEIN, SERUM 6.9 g/dL (6.4-8.2); UREA NITROGEN, BLOOD 64 mg/dL (7-18)
[2024-08-14 04:00] VITALS: TEMP 97.9
[2024-08-14 07:42] LABS: BASOPHILS % (AUTO) 0.3 % (0.0-2.0); EOSINOPHILS # (AUTO) 0.4 K/uL (0.0-0.7); EOSINOPHILS % (AUTO) 2.6 % (0.0-7.0); HEMATOCRIT 32.9 % (36.7-47.1); LYMPHOCYTES # (AUTO) 1.2 K/uL (0.8-4.8); LYMPHOCYTES % (AUTO) 8.7 % (20.5-51.5); MEAN CORPUSCULAR HEMOGLOBIN 31.4 uug (23.8-33.4); MEAN CORPUSCULAR HGB CONC 34 g/dL (32.5-36.3); MEAN CORPUSCULAR VOLUME 93.8 fL (73.0-96.2); MONOCYTES # (AUTO) 0.8 K/uL (0.1-1.30); MONOCYTES % (AUTO) 5.7 % (0.0-11.0); NEUTROPHILS # (AUTO) 11.6 K/uL (1.8-8.9); NEUTROPHILS % (AUTO) 82.7 % (38.5-71.5); PLATELET COUNT (AUTO) 187 K/uL (152-348); RED BLOOD CELL COUNT(AUTO) 3.51 MIL/uL (4.06-5.63); RED CELL DISTRIBUTION WIDTH 14.2 % (12.1-16.2)
[2024-08-14 07:58] LABS: ALANINE AMINOTRANSFERASE 71 U/L (16-63); ALBUMIN 1.8 g/dL (3.4-5.0); ALKALINE PHOSPHATASE 192 U/L (50-136); ASPARTATE AMINOTRANSFERASE 33 U/L (15-37); BILIRUBIN,DIRECT 0.2 mg/dL (0.0-0.2); BILIRUBIN,TOTAL 0.7 mg/dL (0.2-1.0); CALCIUM 8.3 mg/dL (8.5-10.1); CARBON DIOXIDE 27 mmol/L (21-32); CHLORIDE 116 mmol/L (98-107); CREATININE 1.5 mg/dL (0.6-1.3); GLUCOSE 175 mg/dL (74-106); MAGNESIUM 2.3 mg/dL (1.8-2.4); PHOSPHOROUS 4.2 mg/dL (2.5-4.9); POTASSIUM 3.4 mmol/L (3.5-5.1); SODIUM SERUM 153 mmol/L (136-145); TOTAL PROTEIN, SERUM 6.6 g/dL (6.4-8.2); UREA NITROGEN, BLOOD 65 mg/dL (7-18)
[2024-08-14 08:02] VITALS: TEMP 97.7
[2024-08-14 08:30] LABS: DIFFERENTIAL COMMENT 1
[2024-08-14] MEDS: POTASSIUM CHLORIDE 10 MEQ TAB.PRT.SR PO ONE (12:06)
[2024-08-14 15:40] VITALS: BP 136/64; TEMP 97.4; O2SAT 99
[2024-08-14] MEDS: IV 1/2NS 1000 ML 1,000 ML IV SCH (15:54)
[2024-08-14 19:00] VITALS: BP 150/69; TEMP 97.6; O2SAT 98
[2024-08-15] VITALS (7 sets, daily range): BP systolic 124–152; BP diastolic 64–72; TEMP 96.1–98.7; O2SAT 93–100
[2024-08-15 07:07] LABS: BASOPHILS % (AUTO) 0.3 % (0.0-2.0); EOSINOPHILS # (AUTO) 0.5 K/uL (0.0-0.7); EOSINOPHILS % (AUTO) 3.1 % (0.0-7.0); HEMATOCRIT 32.1 % (36.7-47.1); HEMOGLOBIN 10.8 g/dL (12.5-16.3); LYMPHOCYTES # (AUTO) 1.2 K/uL (0.8-4.8); LYMPHOCYTES % (AUTO) 8.3 % (20.5-51.5); MEAN CORPUSCULAR HEMOGLOBIN 31.7 uug (23.8-33.4); MEAN CORPUSCULAR HGB CONC 34 g/dL (32.5-36.3); MEAN CORPUSCULAR VOLUME 93.9 fL (73.0-96.2); MONOCYTES # (AUTO) 0.9 K/uL (0.1-1.30); NEUTROPHILS # (AUTO) 11.9 K/uL (1.8-8.9); NEUTROPHILS % (AUTO) 82.3 % (38.5-71.5); PLATELET COUNT (AUTO) 179 K/uL (152-348); RED BLOOD CELL COUNT(AUTO) 3.42 MIL/uL (4.06-5.63); RED CELL DISTRIBUTION WIDTH 14.4 % (12.1-16.2); WHITE BLOOD COUNT (AUTO) 14.5 K/uL (3.6-10.2)
[2024-08-15 07:20] LABS: DIFFERENTIAL COMMENT 1
[2024-08-15 07:26] LABS: CALCIUM 7.8 mg/dL (8.5-10.1); CARBON DIOXIDE 28 mmol/L (21-32); CHLORIDE 114 mmol/L (98-107); CREATININE 1.4 mg/dL (0.6-1.3); GLUCOSE 112 mg/dL (74-106); MAGNESIUM 2.1 mg/dL (1.8-2.4); PHOSPHOROUS 4.6 mg/dL (2.5-4.9); POTASSIUM 3.6 mmol/L (3.5-5.1); SODIUM SERUM 150 mmol/L (136-145); UREA NITROGEN, BLOOD 59 mg/dL (7-18)
[2024-08-15] MEDS: PROTEIN SUPPLEMENT (PROSTAT) 30 ML LIQUID PO SCH (17:00)
[2024-08-16 07:28] VITALS: BP 137/71; TEMP 97.6; O2SAT 99
[2024-08-16 07:35] LABS: BASOPHILS % (AUTO) 0.4 % (0.0-2.0); EOSINOPHILS # (AUTO) 0.4 K/uL (0.0-0.7); EOSINOPHILS % (AUTO) 3.3 % (0.0-7.0); HEMATOCRIT 30.1 % (36.7-47.1); HEMOGLOBIN 10.3 g/dL (12.5-16.3); LYMPHOCYTES # (AUTO) 1.2 K/uL (0.8-4.8); LYMPHOCYTES % (AUTO) 8.9 % (20.5-51.5); MEAN CORPUSCULAR HEMOGLOBIN 31.7 uug (23.8-33.4); MEAN CORPUSCULAR HGB CONC 34 g/dL (32.5-36.3); MEAN CORPUSCULAR VOLUME 93.2 fL (73.0-96.2); MONOCYTES # (AUTO) 0.8 K/uL (0.1-1.30); MONOCYTES % (AUTO) 5.8 % (0.0-11.0); NEUTROPHILS # (AUTO) 10.6 K/uL (1.8-8.9); NEUTROPHILS % (AUTO) 81.6 % (38.5-71.5); PLATELET COUNT (AUTO) 156 K/uL (152-348); RED BLOOD CELL COUNT(AUTO) 3.23 MIL/uL (4.06-5.63); RED CELL DISTRIBUTION WIDTH 14.8 % (12.1-16.2)
[2024-08-16 07:38] LABS: CALCIUM 7.8 mg/dL (8.5-10.1); CARBON DIOXIDE 28 mmol/L (21-32); CHLORIDE 113 mmol/L (98-107); CREATININE 1.4 mg/dL (0.6-1.3); GLUCOSE 120 mg/dL (74-106); PHOSPHOROUS 4.1 mg/dL (2.5-4.9); POTASSIUM 3.3 mmol/L (3.5-5.1); SODIUM SERUM 145 mmol/L (136-145); UREA NITROGEN, BLOOD 59 mg/dL (7-18)
[2024-08-16 07:44] LABS: DIFFERENTIAL COMMENT 1
[2024-08-16] MEDS ORDERED: SILVER NITRATE APPLICATOR STICK EACH TP PRN (08:00)
[2024-08-16] MEDS ORDERED: LIDOCAINE 1%-EPI 1:100,000 20 ML VIAL IJ PRN (08:00)
[2024-08-16] MEDS: POTASSIUM CHLORIDE 20 MEQ POWDER PACKET GT ONE (09:20)
[2024-08-16 11:30] VITALS: BP 142/67; TEMP 97.6; O2SAT 99
[2024-08-16 19:35] VITALS: BP 157/69; TEMP 97.6; O2SAT 98
[2024-08-17 00:32] VITALS: BP 128/64; TEMP 97.7; O2SAT 100
[2024-08-17 04:23] VITALS: BP 137/71; TEMP 97.5; O2SAT 96
[2024-08-17 07:43] VITALS: BP 126/59; TEMP 97.9; O2SAT 98
[2024-08-17 07:44] LABS: HEMATOCRIT 31.4 % (36.7-47.1); HEMOGLOBIN 10.7 g/dL (12.5-16.3); LYMPHOCYTES # (AUTO) 1.4 K/uL (0.8-4.8); LYMPHOCYTES % (AUTO) 11.1 % (20.5-51.5); MEAN CORPUSCULAR HEMOGLOBIN 31.6 uug (23.8-33.4); MEAN CORPUSCULAR HGB CONC 34 g/dL (32.5-36.3); MONOCYTES # (AUTO) 8.3 K/uL (0.1-1.30); MONOCYTES % (AUTO) 66.7 % (0.0-11.0); NEUTROPHILS # (AUTO) 2.8 K/uL (1.8-8.9); NEUTROPHILS % (AUTO) 22.2 % (38.5-71.5); PLATELET COUNT (AUTO) 157 K/uL (152-348); RED BLOOD CELL COUNT(AUTO) 3.37 MIL/uL (4.06-5.63); RED CELL DISTRIBUTION WIDTH 14.3 % (12.1-16.2); WHITE BLOOD COUNT (AUTO) 12.5 K/uL (3.6-10.2)
[2024-08-17 07:46] LABS: DIFFERENTIAL COMMENT 1
[2024-08-17 08:03] LABS: CARBON DIOXIDE 26 mmol/L (21-32); CHLORIDE 114 mmol/L (98-107); CREATININE 1.2 mg/dL (0.6-1.3); GLUCOSE 112 mg/dL (74-106); PHOSPHOROUS 3.7 mg/dL (2.5-4.9); SODIUM SERUM 148 mmol/L (136-145); UREA NITROGEN, BLOOD 49 mg/dL (7-18)
[2024-08-17 11:38] LABS: LYMPHOCYTES % (MANUAL) 6 % (20-40); MONOCYTES % (MANUAL) 9 % (2-10); NEUTROPHILS % (MANUAL) 85 % (42-75); PLATELET ESTIMATE ADEQUATE
[2024-08-17 11:56] VITALS: BP 123/67; TEMP 97.9; O2SAT 98
[2024-08-17 15:38] VITALS: BP 127/60; TEMP 97.9; O2SAT 98
[2024-08-17 20:00] VITALS: TEMP 98
[2024-08-18] VITALS: TEMP 96.7
[2024-08-18 06:36] LABS: BASOPHILS % (AUTO) 0.3 % (0.0-2.0); EOSINOPHILS # (AUTO) 0.4 K/uL (0.0-0.7); EOSINOPHILS % (AUTO) 3.2 % (0.0-7.0); HEMATOCRIT 30.9 % (36.7-47.1); HEMOGLOBIN 10.5 g/dL (12.5-16.3); LYMPHOCYTES # (AUTO) 1.1 K/uL (0.8-4.8); LYMPHOCYTES % (AUTO) 8.1 % (20.5-51.5); MEAN CORPUSCULAR HEMOGLOBIN 31.9 uug (23.8-33.4); MEAN CORPUSCULAR HGB CONC 34 g/dL (32.5-36.3); MEAN CORPUSCULAR VOLUME 94.1 fL (73.0-96.2); MONOCYTES # (AUTO) 0.8 K/uL (0.1-1.30); MONOCYTES % (AUTO) 5.8 % (0.0-11.0); NEUTROPHILS # (AUTO) 11.3 K/uL (1.8-8.9); NEUTROPHILS % (AUTO) 82.6 % (38.5-71.5); PLATELET COUNT (AUTO) 158 K/uL (152-348); RED BLOOD CELL COUNT(AUTO) 3.28 MIL/uL (4.06-5.63); RED CELL DISTRIBUTION WIDTH 14.4 % (12.1-16.2); WHITE BLOOD COUNT (AUTO) 13.7 K/uL (3.6-10.2)
[2024-08-18 06:37] LABS: DIFFERENTIAL COMMENT 1
[2024-08-18 07:05] LABS: CALCIUM 7.8 mg/dL (8.5-10.1); CARBON DIOXIDE 24 mmol/L (21-32); CHLORIDE 112 mmol/L (98-107); CREATININE 1.2 mg/dL (0.6-1.3); GLUCOSE 107 mg/dL (74-106); MAGNESIUM 1.9 mg/dL (1.8-2.4); PHOSPHOROUS 3.8 mg/dL (2.5-4.9); POTASSIUM 3.9 mmol/L (3.5-5.1); SODIUM SERUM 145 mmol/L (136-145); UREA NITROGEN, BLOOD 42 mg/dL (7-18)
[2024-08-18 07:53] VITALS: BP 102/66; TEMP 98.7; O2SAT 97
[2024-08-18 10:54] VITALS: BP 125/57; TEMP 97.7; O2SAT 100
[2024-08-18 15:13] VITALS: BP 142/68; TEMP 98.5; O2SAT 98
[2024-08-18 19:00] VITALS: BP 129/60; TEMP 98.6; O2SAT 94
[2024-08-19] VITALS: BP 131/68; TEMP 97.8; O2SAT 98
[2024-08-19 04:00] VITALS: BP 131/62; TEMP 97.6; O2SAT 97
[2024-08-19 07:37] VITALS: BP 120/48; TEMP 98.5; O2SAT 97
[2024-08-19 09:44] LABS: BASOPHILS % (AUTO) 0.2 % (0.0-2.0); EOSINOPHILS # (AUTO) 0.4 K/uL (0.0-0.7); HEMATOCRIT 30.2 % (36.7-47.1); HEMOGLOBIN 10.3 g/dL (12.5-16.3); LYMPHOCYTES # (AUTO) 0.9 K/uL (0.8-4.8); LYMPHOCYTES % (AUTO) 7.2 % (20.5-51.5); MEAN CORPUSCULAR HEMOGLOBIN 31.4 uug (23.8-33.4); MEAN CORPUSCULAR HGB CONC 34 g/dL (32.5-36.3); MEAN CORPUSCULAR VOLUME 92.6 fL (73.0-96.2); MONOCYTES # (AUTO) 0.7 K/uL (0.1-1.30); MONOCYTES % (AUTO) 5.9 % (0.0-11.0); NEUTROPHILS # (AUTO) 10.4 K/uL (1.8-8.9); NEUTROPHILS % (AUTO) 83.7 % (38.5-71.5); PLATELET COUNT (AUTO) 166 K/uL (152-348); RED BLOOD CELL COUNT(AUTO) 3.26 MIL/uL (4.06-5.63); RED CELL DISTRIBUTION WIDTH 14.7 % (12.1-16.2); WHITE BLOOD COUNT (AUTO) 12.4 K/uL (3.6-10.2)
[2024-08-19 09:53] LABS: CALCIUM 7.7 mg/dL (8.5-10.1); CARBON DIOXIDE 25 mmol/L (21-32); CHLORIDE 110 mmol/L (98-107); CREATININE 1.2 mg/dL (0.6-1.3); GLUCOSE 112 mg/dL (74-106); MAGNESIUM 1.7 mg/dL (1.8-2.4); PHOSPHOROUS 3.7 mg/dL (2.5-4.9); POTASSIUM 3.9 mmol/L (3.5-5.1); SODIUM SERUM 143 mmol/L (136-145); UREA NITROGEN, BLOOD 37 mg/dL (7-18)
[2024-08-19 10:04] LABS: DIFFERENTIAL COMMENT 1
[2024-08-19 11:37] VITALS: BP 148/61; TEMP 97.8; O2SAT 97
[2024-08-19 15:48] VITALS: BP 147/60; TEMP 98.8; O2SAT 99
[2024-08-19 19:25] VITALS: BP 127/54; TEMP 98.6; O2SAT 99
[2024-08-19] MEDS ORDERED: NEUTRA PHOS PACKET PO ONE (19:45)
[2024-08-19] MEDS ORDERED: MAGNESIUM SULFATE/D5W 100 ML ONE (21:23)
[2024-08-19] MEDS: MAGNESIUM SULFATE/D5W 100 ML IV SCH (21:31)
[2024-08-20 00:10] VITALS: BP 131/51; TEMP 98.5; O2SAT 97
[2024-08-20 06:30] VITALS: BP 120/57; TEMP 97.9; O2SAT 100
[2024-08-20 07:15] LABS: BASOPHILS % (AUTO) 0.3 % (0.0-2.0); EOSINOPHILS # (AUTO) 0.3 K/uL (0.0-0.7); EOSINOPHILS % (AUTO) 2.8 % (0.0-7.0); HEMATOCRIT 28.4 % (36.7-47.1); HEMOGLOBIN 9.8 g/dL (12.5-16.3); LYMPHOCYTES % (AUTO) 8.5 % (20.5-51.5); MEAN CORPUSCULAR HEMOGLOBIN 31.9 uug (23.8-33.4); MEAN CORPUSCULAR HGB CONC 35 g/dL (32.5-36.3); MEAN CORPUSCULAR VOLUME 92.2 fL (73.0-96.2); MONOCYTES % (AUTO) 8.1 % (0.0-11.0); NEUTROPHILS # (AUTO) 9.6 K/uL (1.8-8.9); NEUTROPHILS % (AUTO) 80.3 % (38.5-71.5); PLATELET COUNT (AUTO) 167 K/uL (152-348); RED BLOOD CELL COUNT(AUTO) 3.08 MIL/uL (4.06-5.63); RED CELL DISTRIBUTION WIDTH 14.4 % (12.1-16.2); WHITE BLOOD COUNT (AUTO) 11.9 K/uL (3.6-10.2)
[2024-08-20 07:35] LABS: CALCIUM 7.8 mg/dL (8.5-10.1); CARBON DIOXIDE 24 mmol/L (21-32); CHLORIDE 108 mmol/L (98-107); CREATININE 1.2 mg/dL (0.6-1.3); GLUCOSE 119 mg/dL (74-106); PHOSPHOROUS 3.8 mg/dL (2.5-4.9); POTASSIUM 3.8 mmol/L (3.5-5.1); SODIUM SERUM 141 mmol/L (136-145); UREA NITROGEN, BLOOD 34 mg/dL (7-18)
[2024-08-20 07:40] VITALS: BP 137/61; TEMP 97.7; O2SAT 96
[2024-08-20 07:57] LABS: DIFFERENTIAL COMMENT 1
[2024-08-20 11:33] VITALS: BP 145/66; TEMP 97.8; O2SAT 98
[2024-08-20 15:39] VITALS: BP 141/76; TEMP 97.7; O2SAT 98
[2024-08-20 19:38] VITALS: BP 102/65; TEMP 98.6; O2SAT 96
[2024-08-21 00:30] VITALS: BP 137/65; TEMP 98.3; O2SAT 99
[2024-08-21 04:32] VITALS: BP 150/70; TEMP 98.9; O2SAT 96
[2024-08-21 06:00] VITALS: O2SAT 98
[2024-08-21 09:08] LABS: BASOPHILS % (AUTO) 0.4 % (0.0-2.0); EOSINOPHILS # (AUTO) 0.4 K/uL (0.0-0.7); EOSINOPHILS % (AUTO) 2.8 % (0.0-7.0); HEMATOCRIT 27.9 % (36.7-47.1); HEMOGLOBIN 9.6 g/dL (12.5-16.3); LYMPHOCYTES # (AUTO) 0.8 K/uL (0.8-4.8); LYMPHOCYTES % (AUTO) 6.1 % (20.5-51.5); MEAN CORPUSCULAR HEMOGLOBIN 31.7 uug (23.8-33.4); MEAN CORPUSCULAR HGB CONC 34 g/dL (32.5-36.3); MEAN CORPUSCULAR VOLUME 92.3 fL (73.0-96.2); MONOCYTES # (AUTO) 0.9 K/uL (0.1-1.30); MONOCYTES % (AUTO) 6.8 % (0.0-11.0); NEUTROPHILS # (AUTO) 11.1 K/uL (1.8-8.9); NEUTROPHILS % (AUTO) 83.9 % (38.5-71.5); PLATELET COUNT (AUTO) 159 K/uL (152-348); RED BLOOD CELL COUNT(AUTO) 3.03 MIL/uL (4.06-5.63); RED CELL DISTRIBUTION WIDTH 14.5 % (12.1-16.2); WHITE BLOOD COUNT (AUTO) 13.2 K/uL (3.6-10.2)
[2024-08-21 09:31] LABS: CALCIUM 7.8 mg/dL (8.5-10.1); CARBON DIOXIDE 23 mmol/L (21-32); CHLORIDE 110 mmol/L (98-107); CREATININE 1.2 mg/dL (0.6-1.3); GLUCOSE 125 mg/dL (74-106); MAGNESIUM 1.9 mg/dL (1.8-2.4); PHOSPHOROUS 3.6 mg/dL (2.5-4.9); POTASSIUM 3.9 mmol/L (3.5-5.1); SODIUM SERUM 142 mmol/L (136-145); UREA NITROGEN, BLOOD 32 mg/dL (7-18)
[2024-08-21 09:39] LABS: DIFFERENTIAL COMMENT 1
[2024-08-21 11:46] VITALS: BP 157/70; TEMP 99.3; O2SAT 94
[2024-08-21 15:30] VITALS: BP 136/66; TEMP 99.4; O2SAT 97
[2024-08-21 20:06] VITALS: BP 152/70; TEMP 98.3; O2SAT 96
[2024-08-21] MEDS: DOCUSATE SODIUM 100 MG CAPSULE PO SCH (20:48)
[2024-08-22 05:02] VITALS: O2SAT 98
[2024-08-22 06:59] VITALS: BP 137/68; TEMP 97.9; O2SAT 97
[2024-08-22] MEDS: MIRALAX 17 GM POWD.PACK PO SCH (09:58)
[2024-08-22 11:13] VITALS: BP 136/71; TEMP 97.9; O2SAT 97
[2024-08-22 15:00] LABS: BASOPHILS # (AUTO) 0.1 K/UL (0.0-0.2); BASOPHILS % (AUTO) 0.6 % (0.0-2.0); EOSINOPHILS # (AUTO) 0.4 K/uL (0.0-0.7); EOSINOPHILS % (AUTO) 3.1 % (0.0-7.0); HEMATOCRIT 29.6 % (36.7-47.1); LYMPHOCYTES # (AUTO) 0.9 K/uL (0.8-4.8); LYMPHOCYTES % (AUTO) 7.3 % (20.5-51.5); MEAN CORPUSCULAR HEMOGLOBIN 31.8 uug (23.8-33.4); MEAN CORPUSCULAR HGB CONC 34 g/dL (32.5-36.3); MEAN CORPUSCULAR VOLUME 93.9 fL (73.0-96.2); MONOCYTES # (AUTO) 0.9 K/uL (0.1-1.30); MONOCYTES % (AUTO) 7.3 % (0.0-11.0); NEUTROPHILS # (AUTO) 10.6 K/uL (1.8-8.9); NEUTROPHILS % (AUTO) 81.7 % (38.5-71.5); PLATELET COUNT (AUTO) 154 K/uL (152-348); RED BLOOD CELL COUNT(AUTO) 3.15 MIL/uL (4.06-5.63); RED CELL DISTRIBUTION WIDTH 15.2 % (12.1-16.2)
[2024-08-22 15:05] LABS: DIFFERENTIAL COMMENT 1
[2024-08-22 15:18] VITALS: BP 152/70; TEMP 98.8; O2SAT 98
[2024-08-22 15:19] LABS: CALCIUM 7.7 mg/dL (8.5-10.1); CARBON DIOXIDE 24 mmol/L (21-32); CHLORIDE 107 mmol/L (98-107); CREATININE 1.1 mg/dL (0.6-1.3); GLUCOSE 115 mg/dL (74-106); MAGNESIUM 1.8 mg/dL (1.8-2.4); PHOSPHOROUS 3.7 mg/dL (2.5-4.9); POTASSIUM 4.2 mmol/L (3.5-5.1); SODIUM SERUM 140 mmol/L (136-145); UREA NITROGEN, BLOOD 30 mg/dL (7-18)
[2024-08-22 19:00] VITALS: TEMP 98.8
[2024-08-23 06:00] VITALS: TEMP 99.1
[2024-08-23 07:10] VITALS: BP 128/71; TEMP 99.4; O2SAT 96
[2024-08-23 10:05] LABS: BASOPHILS # (AUTO) 0.1 K/UL (0.0-0.2); BASOPHILS % (AUTO) 0.5 % (0.0-2.0); EOSINOPHILS # (AUTO) 0.4 K/uL (0.0-0.7); EOSINOPHILS % (AUTO) 2.9 % (0.0-7.0); HEMOGLOBIN 9.6 g/dL (12.5-16.3); LYMPHOCYTES # (AUTO) 0.7 K/uL (0.8-4.8); LYMPHOCYTES % (AUTO) 5.2 % (20.5-51.5); MEAN CORPUSCULAR HEMOGLOBIN 31.7 uug (23.8-33.4); MEAN CORPUSCULAR HGB CONC 34 g/dL (32.5-36.3); MEAN CORPUSCULAR VOLUME 92.3 fL (73.0-96.2); MONOCYTES # (AUTO) 0.9 K/uL (0.1-1.30); NEUTROPHILS # (AUTO) 11.3 K/uL (1.8-8.9); NEUTROPHILS % (AUTO) 84.4 % (38.5-71.5); PLATELET COUNT (AUTO) 206 K/uL (152-348); RED BLOOD CELL COUNT(AUTO) 3.04 MIL/uL (4.06-5.63); RED CELL DISTRIBUTION WIDTH 14.7 % (12.1-16.2); WHITE BLOOD COUNT (AUTO) 13.3 K/uL (3.6-10.2)
[2024-08-23 10:27] LABS: DIFFERENTIAL COMMENT 1
[2024-08-23 10:34] LABS: CALCIUM 7.8 mg/dL (8.5-10.1); CARBON DIOXIDE 21 mmol/L (21-32); CHLORIDE 106 mmol/L (98-107); CREATININE 1.2 mg/dL (0.6-1.3); GLUCOSE 150 mg/dL (74-106); MAGNESIUM 1.7 mg/dL (1.8-2.4); POTASSIUM 4.1 mmol/L (3.5-5.1); SODIUM SERUM 139 mmol/L (136-145); UREA NITROGEN, BLOOD 32 mg/dL (7-18)
[2024-08-23 12:00] VITALS: BP 110/62; TEMP 99.2; O2SAT 97
[2024-08-23] MEDS ORDERED: ACETAMINOPHEN 650 MG/20.3 ML LIQUID UDC PO PRN (13:00)
[2024-08-23 16:00] VITALS: BP 139/65; TEMP 97.9; O2SAT 97
[2024-08-23 19:30] VITALS: BP 147/64; TEMP 98.3; O2SAT 97
[2024-08-24 06:50] VITALS: BP 127/60; TEMP 98.8; O2SAT 99
[2024-08-24 07:25] VITALS: O2SAT 98
[2024-08-24 07:48] LABS: BASOPHILS % (AUTO) 0.2 % (0.0-2.0); EOSINOPHILS # (AUTO) 0.5 K/uL (0.0-0.7); HEMOGLOBIN 9.3 g/dL (12.5-16.3); LYMPHOCYTES # (AUTO) 0.8 K/uL (0.8-4.8); LYMPHOCYTES % (AUTO) 6.1 % (20.5-51.5); MEAN CORPUSCULAR HEMOGLOBIN 31.8 uug (23.8-33.4); MEAN CORPUSCULAR HGB CONC 34 g/dL (32.5-36.3); MEAN CORPUSCULAR VOLUME 92.8 fL (73.0-96.2); MONOCYTES # (AUTO) 0.9 K/uL (0.1-1.30); MONOCYTES % (AUTO) 7.1 % (0.0-11.0); NEUTROPHILS # (AUTO) 10.1 K/uL (1.8-8.9); NEUTROPHILS % (AUTO) 82.6 % (38.5-71.5); PLATELET COUNT (AUTO) 199 K/uL (152-348); RED BLOOD CELL COUNT(AUTO) 2.92 MIL/uL (4.06-5.63); RED CELL DISTRIBUTION WIDTH 14.4 % (12.1-16.2); WHITE BLOOD COUNT (AUTO) 12.3 K/uL (3.6-10.2)
[2024-08-24 08:07] LABS: DIFFERENTIAL COMMENT 1
[2024-08-24 08:09] LABS: IRON, SERUM 27 ug/dL (50-175)
[2024-08-24 08:22] LABS: CALCIUM 7.6 mg/dL (8.5-10.1); CARBON DIOXIDE 24 mmol/L (21-32); CHLORIDE 106 mmol/L (98-107); CREATININE 1.2 mg/dL (0.6-1.3); FERRITIN < 1 ng/mL (26-388); GLUCOSE 109 mg/dL (74-106); MAGNESIUM 1.6 mg/dL (1.8-2.4); PHOSPHOROUS 4.1 mg/dL (2.5-4.9); POTASSIUM 3.9 mmol/L (3.5-5.1); SODIUM SERUM 138 mmol/L (136-145); UREA NITROGEN, BLOOD 32 mg/dL (7-18)
[2024-08-24] MEDS ORDERED: SILVER NITRATE APPLICATOR STICK EACH TP PRN (09:00)
[2024-08-24] MEDS ORDERED: LIDOCAINE 1%-EPI 1:100,000 20 ML VIAL IJ ONE (09:00)
[2024-08-24] MEDS ORDERED: SILVER NITRATE APPLICATOR STICK EACH TP ONE (09:00)
[2024-08-24] MEDS: MAGNESIUM OXIDE 400 MG TABLET PO ONE (10:14)
[2024-08-24] MEDS: LIDOCAINE 1%-EPI 1:100,000 20 ML VIAL IJ PRN (10:24)
[2024-08-24 11:10] VITALS: BP 132/63; TEMP 98.2; O2SAT 96
[2024-08-24] MEDS ORDERED: AMLO-212 PO (11:27)
[2024-08-24] MEDS ORDERED: HYDR50TA68 PO (11:27)
[2024-08-24] MEDS ORDERED: MODA100T29 PO (11:27)
[2024-08-24] MEDS ORDERED: AMIO200T6 PO (11:27)
[2024-08-24] MEDS ORDERED: QUET25TA36 PO (11:27)
[2024-08-24 15:02] VITALS: BP 145/54; TEMP 98.6; O2SAT 100
== END 2024-08-24 18:50 | DRG 853 ==
LOC: ER 12:38 → TRANSITION 18:04 → CCU 20:14 → TELE3 08-11 14:30 → MEDSURG3 08-21 10:18
PROC: 02HV33Z Insertion of Infusion Device into Superior Vena Cava, Percutaneous Approach (ICD-10-PCS; principal; 2024-07-22)
PROC: 5A1955Z Respiratory Ventilation, Greater than 96 Consecutive Hours (ICD-10-PCS; 2024-07-22)
PROC: 0BH17EZ Insertion of Endotracheal Airway into Trachea, Via Natural or Artificial Opening (ICD-10-PCS; 2024-07-22)
PROC: 03HB33Z Insertion of Infusion Device into Right Radial Artery, Percutaneous Approach (ICD-10-PCS; 2024-07-23)
PROC: 0TJB8ZZ Inspection of Bladder, Via Natural or Artificial Opening Endoscopic (ICD-10-PCS; 2024-07-25)
PROC: 30243R1 Transfusion of Nonautologous Platelets into Central Vein, Percutaneous Approach (ICD-10-PCS; 2024-07-25)
PROC: 06HY33Z Insertion of Infusion Device into Lower Vein, Percutaneous Approach (ICD-10-PCS; 2024-07-25)
PROC: 5A1D70Z Performance of Urinary Filtration, Intermittent, Less than 6 Hours Per Day (ICD-10-PCS; 2024-07-25)
PROC: 30243M1 Transfusion of Nonautologous Plasma Cryoprecipitate into Central Vein, Percutaneous Approach (ICD-10-PCS; 2024-07-27)
PROC: 0KBP0ZZ Excision of Left Hip Muscle, Open Approach (ICD-10-PCS; 2024-08-16)
PROC: 0KBP0ZZ Excision of Left Hip Muscle, Open Approach (ICD-10-PCS; 2024-08-24)
DX: A41.51 Sepsis due to Escherichia coli [E. coli] (principal); D65 Disseminated intravascular coagulation [defibrination syndrome]; S06.6XAA Traumatic subarachnoid hemorrhage with loss of consciousness status unknown, initial encounter; E43 Unspecified severe protein-calorie malnutrition; G92.8 Other toxic encephalopathy; I21.A1 Myocardial infarction type 2; J15.9 Unspecified bacterial pneumonia; R65.21 Severe sepsis with septic shock; J96.02 Acute respiratory failure with hypercapnia; J96.01 Acute respiratory failure with hypoxia; J69.0 Pneumonitis due to inhalation of food and vomit; I50.23 Acute on chronic systolic (congestive) heart failure; L89.154 Pressure ulcer of sacral region, stage 4; K72.00 Acute and subacute hepatic failure without coma; N13.6 Pyonephrosis; M62.82 Rhabdomyolysis; Z68.41 Body mass index [BMI] 40.0-44.9, adult; E11.52 Type 2 diabetes mellitus with diabetic peripheral angiopathy with gangrene; I96 Gangrene, not elsewhere classified; E87.1 Hypo-osmolality and hyponatremia; E87.0 Hyperosmolality and hypernatremia; I13.0 Hypertensive heart and chronic kidney disease with heart failure and stage 1 through stage 4 chronic kidney disease, or unspecified chronic kidney disease; E87.4 Mixed disorder of acid-base balance; J98.11 Atelectasis; E66.01 Morbid (severe) obesity due to excess calories; T38.895A Adverse effect of other hormones and synthetic substitutes, initial encounter; Y92.230 Patient room in hospital as the place of occurrence of the external cause; E11.22 Type 2 diabetes mellitus with diabetic chronic kidney disease; N18.9 Chronic kidney disease, unspecified; R40.2142 Coma scale, eyes open, spontaneous, at arrival to emergency department; R40.2242 Coma scale, best verbal response, confused conversation, at arrival to emergency department; R40.2362 Coma scale, best motor response, obeys commands, at arrival to emergency department; W18.30XA Fall on same level, unspecified, initial encounter; Y92.039 Unspecified place in apartment as the place of occurrence of the external cause; E88.09 Other disorders of plasma-protein metabolism, not elsewhere classified; M15.9 Polyosteoarthritis, unspecified; E83.42 Hypomagnesemia; E86.0 Dehydration; Z90.49 Acquired absence of other specified parts of digestive tract; I48.0 Paroxysmal atrial fibrillation; H91.93 Unspecified hearing loss, bilateral; K57.30 Diverticulosis of large intestine without perforation or abscess without bleeding; E87.6 Hypokalemia; S00.432A Contusion of left ear, initial encounter
CPT/HCPCS: 36415; 36600; 70030-TC; 70450; 71045; 74018; 76770; 82378; 82746; 82784; 82803; 83010; 83550; 83605; 83615; 83690; 83735; 84100; 84153; 84155; 84165; 84443; 84484; 85025; 85730; 86038; 86140; 86334; 86430; 86706; 86803; 86850; 86900; 86901; 87040; 87077; 87340; 88185; 90937; 93005; 93307; 94002; 94003; 94640; 94660; 94664; 94760; 99082-TC; A4606; A4663; A6209; A6213; C1758; G0378; G0480; J0278; J0282; J0360; J0692; J0696; J1815; J1940; J2185; J2250; J2270; J2470; J2997; J3010; J3370; J3430; J3475; J3480; J3490; J3590; J7040; J7042; J7050; J7070; J7120; J7614; P9012; P9035